=== PATIENT | female | born 1980 | race African-American/Black ===

== ENCOUNTER 2016-09-07 20:32 | Emergency (ER) | payer MEDICAID, OTHER ==
[2016-09-07] MEDS ORDERED: Ketorolac 60 MG/2 ML SDV IM ONE (20:51)
--- NOTE | 2016-09-07 21:22 | EDM.PDOC ---
ED HPI GENERAL MEDICAL PROBLEM - General Chief Complaint: Neck Problem Stated Complaint: STIFF NECK Time Seen by Provider: 09/07/16 20:50 Source of Information: Reports: Patient History Limitations: Reports: No limitations - History of Present Illness INITIAL COMMENTS - FREE TEXT/NARRATIVE: History of present illness: [35-year-old male presenting with acute onset of neck pain. Patient indicated her neck had been increasingly tight to 2 sleeping wrong, and increasing stresses in her life when yesterday she was twisting and rolling around to try to loosen the muscles and she heard a loud pop since that time she has had increasing pain in the neck radiating up into the head.] Review of systems: As per history of present illness and below otherwise all systems reviewed and negative. Past medical history: As per history of present illness and as reviewed below otherwise noncontributory. Surgical history: As per history of present illness and as reviewed below otherwise noncontributory. Social history: No reported history of drug or alcohol abuse. Family history: As per history of present illness and as reviewed below otherwise noncontributory. Physical exam: HEENT: Atraumatic, normocephalic, pupils reactive, negative for conjunctival pallor or scleral icterus, mucous membranes moist, throat clear, neck supple, nontender, trachea midline. Lungs: Clear to auscultation, breath sounds equal bilaterally, chest nontender. Heart: S1S2, regular, negative for clicks, rubs, or JVD. Abdomen: Soft, nondistended, nontender. Negative for masses or hepatosplenomegaly. Negative for costovertebral tenderness. Pelvis: Stable nontender. Genitourinary: Deferred. Rectal: Deferred. Extremities: Atraumatic, negative for cords or calf pain. Neurovascular unremarkable. Neuro: Awake, alert, oriented. Cranial nerves II through XII unremarkable. Cerebellum unremarkable. Motor and sensory unremarkable throughout. Exam nonfocal. Assessment gallbladder benign save for point tenderness in several of the C- spines including 4,5 and 6 Diagnostics: [X-ray of the cervical spine] Therapeutics: [Toradol 60 mg IM] Impression: [Neck pain] Plan: [Muscle relaxer, steroid burst] Definitive disposition and diagnosis as appropriate pending reevaluation and review of above. 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: , Other (see below) Other OB/BYN History: ovarian cysts Musculoskeletal History: Reports: None Neurological History: Reports: Migraines Psychiatric History: Reports: None Endocrine/Metabolic History: Reports: None Hematologic History: Reports: None Immunologic History: Reports: None Oncologic (Cancer) History: Reports: None Dermatologic History: Reports: Cellulitis - Infectious Disease History Infectious Disease History: Reports: None - Past Surgical History Head Surgeries/Procedures: Reports: None Female Surgical History: Reports: Tubal ligation Social & Family History - Family History Family Medical History: Noncontributory - Tobacco Use Smoking Status *Q: Never Smoker Years of Tobacco use: 1 Packs/Tins Daily: 0.1 Second Hand Smoke Exposure: No - Caffeine Use Caffeine Use: Reports: None Caffeine Use Comment: 1/day - Alcohol Use Days Per Week of Alcohol Use: 0 - Recreational Drug Use Recreational Drug Use: No ED ROS GENERAL - Review of Systems Review Of Systems: See Below (See history of present illness) ED EXAM, GENERAL - Physical Exam Exam: See Below (See history of present illness) Course - Vital Signs Last Recorded V/S: Last Vital Signs Temp 36.6 C 09/07/16 20:38 Pulse 82 09/07/16 20:38 Resp 16 09/07/16 20:38 BP 131/78 09/07/16 20:38 Pulse Ox 98 09/07/16 20:38 - Orders/Labs/Meds Orders: Active Orders 24 hr Category Date Time Status Cervical Spine 2V or 3V [CR] Stat Exams 09/07/16 20:51 Ordered Meds: Medications Discontinued Medications Generic Name Dose Route Start Last Admin Trade Name Freq PRN Reason Stop Dose Admin Ketorolac Tromethamine 60 mg 09/07/16 20:51 Toradol IM 09/07/16 20:52 ONETIME ONE Departure - Departure Time of Disposition: 21:29 Disposition: Home, Self-Care 01 Condition: good Clinical Impression: Neck pain, acute Instructions: Cervical Sprain, [id number] Referrals: PCP,None [Primary Care Provider] - Forms: ED Department Discharge Additional Instructions: The following information is given to patients seen in the emergency department who are being discharged to home. This information is to outline your options for follow-up care. We provide all patients seen in our emergency department with a follow-up referral. The need for follow-up, as well as the timing and circumstances, are variable depending upon the specifics of your emergency department visit. If you don't have a primary care physician on staff, we will provide you with a referral. We always advise you to contact your personal physician following an emergency department visit to inform them of the circumstance of the visit and for follow-up with them and/or the need for any referrals to a consulting specialist. The emergency department will also refer you to a specialist when appropriate. This referral assures that you have the opportunity for follow-up care with a specialist. All of these measure are taken in an effort to provide you with optimal care, which includes your follow-up. Under all circumstances we always encourage you to contact your private physician who remains a resource for coordinating your care. When calling for follow-up care, please make the office aware that this follow-up is from your recent emergency room visit. If for any reason you are refused follow-up, please contact the [facility] Emergency Department at and asked to speak to the emergency department charge nurse. Take medication as directed All with primary care provider one to 2 days Return to ED as needed as discussed - My Orders Last 24 Hours: My Active Orders 09/07/16 20:51 Cervical Spine 2V or 3V [CR] Stat - Assessment/Plan Last 24 Hours: My Active Orders 09/07/16 20:51 Cervical Spine 2V or 3V [CR] Stat
[2016-09-07] MEDS ORDERED: SUMAtriptan 6 MG/0.5 ML SDV SUBCUT ONE (21:41)
[2016-09-07 22:40] VITALS: BP 125/73
--- NOTE | 2016-09-09 18:03 | CR ---
EXAM DATE: 09/07/16 PATIENT'S AGE: 35 Patient: PHILLY COOMBS Facility: [place], [place] Site . Site : 1980 Study: XRay Spine Cervical [id number]/1/2017 9:14:09 PM Ordering Physician: Doctor May Final Report: INDICATION: Neck pain. Technique: Lateral, frontal, and odontoid views of the cervical spine. Impression: At the pedicles of C2, there is a lucency present. No displacement. The upper cervical spine may be somewhat rotated. Correlate with history of trauma. Would suggest either a repeat cone-down view of this region at C2 or a CT scan of the cervical spine for better visualization. In the setting of trauma fracture would not be excluded. The alignment shows no abnormal listhesis. The prevertebral soft tissues appear normal. Dictated by Eliezer Landis MD @ Sep 07 2016 9:18PM (Electronic Signature) Report Signed by Proxy and Original Signed Document filed in the Medical Record. MTDD
== END 2016-09-07 22:16 | disposition home or self-care (01) ==
LOC: MW.ED 20:32
DX: M54.2 Cervicalgia (principal); Z98.51 Tubal ligation status
CPT/HCPCS: 72040; 96372; 99283; J1885; J3030

== ENCOUNTER 2016-09-30 03:36 | Emergency (ER) | payer MEDICAID ==
[2016-09-30] MEDS ORDERED: Ketorolac 60 MG/2 ML SDV IM ONE (03:57)
[2016-09-30] MEDS ORDERED: SUMAtriptan 50 MG Tab PO ONE (03:58)
--- NOTE | 2016-09-30 04:01 | EDM.PDOC ---
ED HPI GENERAL MEDICAL PROBLEM - General Chief Complaint: Headache Stated Complaint: HEAD PAIN Time Seen by Provider: 09/30/16 03:58 Source of Information: Reports: Patient - History of Present Illness INITIAL COMMENTS - FREE TEXT/NARRATIVE: HISTORY AND PHYSICAL: History of present illness: [] Patient presents with complaint of headache involving left knee neuro unilateral distribution she rates 7/10, she does not appear to be any pain denies nausea or vomiting no scotomas no aura She states that she has used ibuprofen without benefit She has multiple visits for pain related symptoms Review of systems: As per history of present illness and below otherwise all systems reviewed and negative. Past medical history: As per history of present illness and as reviewed below otherwise noncontributory. Surgical history: As per history of present illness and as reviewed below otherwise noncontributory. Social history: No reported history of drug or alcohol abuse. Family history: As per history of present illness and as reviewed below otherwise noncontributory. Physical exam: HEENT: Atraumatic, normocephalic, pupils reactive, negative for conjunctival pallor or scleral icterus, mucous membranes moist, throat clear, neck supple, nontender, trachea midline. Lungs: Clear to auscultation, breath sounds equal bilaterally, chest nontender. Heart: S1S2, regular, negative for clicks, rubs, or JVD. Abdomen: Soft, nondistended, nontender. Negative for masses or hepatosplenomegaly. Negative for costovertebral tenderness. Pelvis: Stable nontender. Genitourinary: Deferred. Rectal: Deferred. Extremities: Atraumatic, negative for cords or calf pain. Neurovascular unremarkable. Neuro: Awake, alert, oriented. Cranial nerves II through XII unremarkable. Cerebellum unremarkable. Motor and sensory unremarkable throughout. Exam nonfocal. Diagnostics: [] Therapeutics: [] Toradol 60 IM Imitrex 50 mg by mouth Impression: [] A typical headache Definitive disposition and diagnosis as appropriate pending reevaluation and review of above. 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 (see below) Other OB/BYN History: ovarian cysts Musculoskeletal History: Reports: None Neurological History: Reports: Migraines Psychiatric History: Reports: None Endocrine/Metabolic History: Reports: None Hematologic History: Reports: None Immunologic History: Reports: None Oncologic (Cancer) History: Reports: None Dermatologic History: Reports: Cellulitis - Infectious Disease History Infectious Disease History: Reports: None - Past Surgical History Head Surgeries/Procedures: Reports: None Female Surgical History: Reports: Tubal ligation Social & Family History - Family History Family Medical History: Noncontributory - Tobacco Use Smoking Status *Q: Never Smoker Years of Tobacco use: 1 Packs/Tins Daily: 0.1 Second Hand Smoke Exposure: No - Caffeine Use Caffeine Use: Reports: None Caffeine Use Comment: 1/day - Alcohol Use Days Per Week of Alcohol Use: 0 - Recreational Drug Use Recreational Drug Use: No ED ROS GENERAL - Review of Systems Review Of Systems: ROS reveals no pertinent complaints other than HPI. ED EXAM, GENERAL - Physical Exam Exam: See Below Course - Vital Signs Last Recorded V/S: Last Vital Signs Temp 36.4 C 09/30/16 03:40 Pulse 88 09/30/16 03:40 Resp 16 09/30/16 03:40 BP 136/82 09/30/16 03:40 Pulse Ox 99 09/30/16 03:40 - Orders/Labs/Meds Orders: Active Orders 24 hr Category Date Time Status Ketorolac [Toradol] Med 09/30/16 03:57 Once 60 mg IM ONETIME ONE Medication Orders Ketorolac Tromethamine (Toradol) 60 mg IM ONETIME ONE Stop: 09/30/16 03:58 Meds: Medications Generic Name Dose Route Start Last Admin Trade Name Freq PRN Reason Stop Dose Admin Ketorolac Tromethamine 60 mg 09/30/16 03:57 Toradol IM 09/30/16 03:58 ONETIME ONE Departure - Departure Time of Disposition: 04:00 Disposition: Home, Self-Care 01 Condition: good Clinical Impression: Headache Forms: ED Department Discharge Additional Instructions: Continue ibuprofen as needed Caffeine may benefit Return if symptoms persist or worsen Followup with primary care in 2 weeks sooner as needed The following information is given to patients seen in the emergency department who are being discharged to home. This information is to outline your options for follow-up care. We provide all patients seen in our emergency department with a follow-up referral. The need for follow-up, as well as the timing and circumstances, are variable depending upon the specifics of your emergency department visit. If you don't have a primary care physician on staff, we will provide you with a referral. We always advise you to contact your personal physician following an emergency department visit to inform them of the circumstance of the visit and for follow-up with them and/or the need for any referrals to a consulting specialist. The emergency department will also refer you to a specialist when appropriate. This referral assures that you have the opportunity for follow-up care with a specialist. All of these measure are taken in an effort to provide you with optimal care, which includes your follow-up. Under all circumstances we always encourage you to contact your private physician who remains a resource for coordinating your care. When calling for follow-up care, please make the office aware that this follow-up is from your recent emergency room visit. If for any reason you are refused follow-up, please contact the [facility] emergency department at and asked to speak to the emergency department charge nurse. - My Orders Last 24 Hours: My Active Orders 09/30/16 03:57 Ketorolac [Toradol] 60 mg IM ONETIME ONE - Assessment/Plan Last 24 Hours: My Active Orders 09/30/16 03:57 Ketorolac [Toradol] 60 mg IM ONETIME ONE
[2016-09-30 04:45] VITALS: BP 132/84
== END 2016-09-30 04:43 | disposition home or self-care (01) ==
LOC: MW.ED 03:36
DX: R51 Headache (principal); Z98.51 Tubal ligation status
CPT/HCPCS: 96372; 99283; A9270; J1885

== ENCOUNTER 2016-12-24 22:59 | Emergency (ER) | payer MEDICAID ==
[2016-12-24] MEDS ORDERED: Acetaminophen/oxyCODONE 325-10 MG Tab PO ONE (23:52)
--- NOTE | 2016-12-24 23:59 | EDM.PDOC ---
ED HPI GENERAL MEDICAL PROBLEM - General Chief Complaint: Lower Extremity Injury/Pain Stated Complaint: PAIN RT LEG Time Seen by Provider: 12/24/16 23:30 Source of Information: Reports: Patient, Old Records, RN - History of Present Illness INITIAL COMMENTS - FREE TEXT/NARRATIVE: she had a severe "parminder horse" in her right thigh two days ago. Since then she has had constant soreness in the thigh such that it hurts alot to walk. no fever no vomiting no blunt force trauma no fever no dysuria right upper leg Pain Score (Numeric/FACES): 10 - Related Data Allergies Allergy/AdvReac Type Severity Reaction Status Date / Time No Known Allergies Allergy Verified 12/24/16 23:15 Home Meds: Home Meds Ondansetron HCl [Zofran] 4 mg PO Q8H PRN #10 tab 06/12/16 [Rx] Past Medical History - Past Health History Medical/Surgical History: Denies Medical/Surgical History HEENT History: Reports: None Cardiovascular History: Reports: None Respiratory History: Reports: None Gastrointestinal History: Reports: None Genitourinary History: Reports: None 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: Other OB/BYN History: ovarian cysts Musculoskeletal History: Reports: None Neurological History: Reports: Migraines Psychiatric History: Reports: None Endocrine/Metabolic History: Reports: None Hematologic History: Reports: None Immunologic History: Reports: None Oncologic (Cancer) History: Reports: None Dermatologic History: Reports: Cellulitis - Infectious Disease History Infectious Disease History: Reports: None - Past Surgical History Head Surgeries/Procedures: Reports: None Female Surgical History: Reports: Tubal Ligation Social & Family History - Family History Family Medical History: Noncontributory - Tobacco Use Smoking Status *Q: Never Smoker Years of Tobacco use: 1 Packs/Tins Daily: 0.1 Second Hand Smoke Exposure: No - Caffeine Use Caffeine Use: Reports: Coffee Caffeine Use Comment: 1/day - Alcohol Use Days Per Week of Alcohol Use: 0 - Recreational Drug Use Recreational Drug Use: No Review of Systems - Review of Systems Review Of Systems: See Below (as per HPI) ED EXAM, GENERAL - Physical Exam Exam: See Below Free Text/Narrative:: alert NAD marked tenderness over proximal anterior and medial right thigh musculature; Normal ROM of the hip joint but marked pain with motion. bears weight but with marked favoring of RLE with walking. Course - Vital Signs Last Recorded V/S: Last Vital Signs Temp 98.2 F 12/24/16 23:16 Pulse 90 12/24/16 23:16 Resp 16 12/24/16 23:16 BP 121/62 12/24/16 23:16 Pulse Ox 98 12/24/16 23:16 - Orders/Labs/Meds Orders: Active Orders 24 hr Category Date Time Status Hip Min 2V or 3V w Pelvis Rt [CR] Stat Exams 12/24/16 23:53 Taken Labs: Laboratory Tests 12/25/16 12/25/16 Range/Units 00:14 00:14 WBC 8.51 (4.0-11.0) K/uL RBC 4.33 (4.30-5.90) M/uL Hgb 12.0 (12.0-16.0) g/dL Hct 37.0 (36.0-46.0) % MCV 85.5 (80.0-98.0) fL MCH 27.7 (27.0-32.0) pg MCHC 32.4 (31.0-37.0) g/dL RDW Std Deviation 43.9 (28.0-62.0) fl RDW Coeff of Francisco 14 (11.0-15.0) % Plt Count 235 (150-400) K/uL MPV 10.50 (7.40-12.00) fL Neut % (Auto) 49.8 (48.0-80.0) % Lymph % (Auto) 40.2 H (16.0-40.0) % Canadian % (Auto) 7.6 (0.0-15.0) % Eos % (Auto) 2.2 (0.0-7.0) % Baso % (Auto) 0.2 (0.0-1.5) % Neut # (Auto) 4.2 (1.4-5.7) K/uL Lymph # (Auto) 3.4 H (0.6-2.4) K/uL Canadian # (Auto) 0.7 (0.0-0.8) K/uL Eos # (Auto) 0.2 (0.0-0.7) K/uL Baso # (Auto) 0.0 (0.0-0.1) K/uL Nucleated RBC % 0.0 /100WBC Nucleated RBCs # 0 K/uL Sodium 140 (136-146) mmol/L Potassium 4.4 (3.5-5.1) mmol/L Chloride 104 (98-110) mmol/L Carbon Dioxide 26 (21-31) mmol/L BUN 18 (6.0-23.0) mg/dL Creatinine 0.8 (0.6-1.5) mg/dL Est Cr Clr Drug Dosing 96.36 mL/min Estimated GFR (MDRD) > 60.0 ml/min Glucose 94 (60-110) mg/dL Calcium 9.3 (8.8-10.8) mg/dL Magnesium 1.6 (1.5-2.3) mEq/L Total Bilirubin 0.4 (0.1-1.5) mg/dL AST 17 (5-40) IU/L ALT 16 (8-54) IU/L Alkaline Phosphatase 57 (40-150) Creatine Kinase 136 (9-236) IU/L Total Protein 7.8 (6.0-8.0) g/dL Albumin 3.9 (3.5-5.0) g/dL Globulin 3.9 H (2.0-3.5) g/dL Albumin/Globulin Ratio 1.0 L (1.3-2.8) Meds: Medications Discontinued Medications Generic Name Dose Route Start Last Admin Trade Name Zeke PRN Reason Stop Dose Admin Oxycodone/Acetaminophen 1 tab 12/24/16 23:52 12/25/16 00:30 Percocet 325-10 Mg PO 12/24/16 23:53 1 tab ONETIME ONE Administration - Re-Assessments/Exams Free Text/Narrative Re-Assessment/Exam: 12/25/16 01:37 she feels much improved after percocet 10 Departure - Departure Time of Disposition: 01:41 Disposition: Home, Self-Care 01 Clinical Impression: Muscle pain - Discharge Information Forms: ED Department Discharge Additional Instructions: recheck as needed home from work until Friday percocet may be habit forming, sedating and constipating do not use tylenol with percocet recheck if not improving over the next few days. Yordy Prince MD - My Orders Last 24 Hours: My Active Orders 12/24/16 23:53 Hip Min 2V or 3V w Pelvis Rt [CR] Stat - Assessment/Plan Last 24 Hours: My Active Orders 12/24/16 23:53 Hip Min 2V or 3V w Pelvis Rt [CR] Stat
[2016-12-25 00:44] LABS: CHLORIDE,CL 104 mmol/L (98-110); SODIUM,NA 140 mmol/L (136-146)
[2016-12-25 02:56] VITALS: BP 118/77
--- NOTE | 2016-12-25 11:42 | CR ---
EXAM DATE: 12/24/16 PATIENT'S AGE: 36 Patient: PHILLY COOMBS Facility: [place], [place] Site . Site : 1980 Study: XRay Hip w/ pelvis [id number]/19/2017 12:39:50 AM Ordering Physician: Suresh Scales Final Report: HISTORY: Pain. FINDINGS: AP pelvis, AP and frog-leg views of the right hip demonstrates the pelvic ring and sacral ala are intact. The SI joints are maintained. There is a 6 mm calcific density seen adjacent to the right lateral acetabulum roof. Right hip joint space is preserved. No under abnormality, fracture or dislocation seen. IMPRESSION: 1. No fracture or dislocation is seen. 2. 6 mm calcific density seen adjacent lateral acetabular roof. This could represent an unfused ossification center. Dictated by Laura Giron MD @ 12/25/2016 12:54:16 AM Dictated by: Laura Giron MD @ 12/25/2016 00:54:23 (Electronic Signature) Report Signed by Proxy. [facility]a
== END 2016-12-25 01:55 | disposition home or self-care (01) ==
LOC: MW.ED 22:59
DX: M79.1 Myalgia (principal); Z98.51 Tubal ligation status
CPT/HCPCS: 36415; 73502; 80053; 82550; 83735; 85025; 99283; A9270

== ENCOUNTER 2017-04-04 20:57 | Emergency (ER) | payer MEDICAID ==
[2017-04-04 21:14] VITALS: BP 133/80
[2017-04-04] MEDS ORDERED: Ketorolac 30 MG/ML SDV IVPUSH ONE (21:42)
[2017-04-04] MEDS ORDERED: Ondansetron 4 MG/2 ML SDV IVPUSH ONE (21:42)
[2017-04-04] MEDS ORDERED: Sodium Chloride 0.9% 1,000 ML IV ONE (21:42)
[2017-04-04] MEDS ORDERED: LORazepam 2 MG/ML MDV IVPUSH ONE (21:42)
--- NOTE | 2017-04-04 21:58 | EDM.PDOC ---
ED HPI GENERAL MEDICAL PROBLEM - General Chief Complaint: Headache Stated Complaint: MIGRAINE Time Seen by Provider: 04/04/17 21:10 Source of Information: Reports: Patient History Limitations: Reports: No Limitations - History of Present Illness INITIAL COMMENTS - FREE TEXT/NARRATIVE: History of present illness: [36-year-old female comes in complaining of a migraine. Patient indicates that she has sporadic migraines and sometimes they cause her to have to come to the ED for intervention. Patient denies this being the worst migraine of her life just consistent with ones that are worse than she can manage at home.] Review of systems: As per history of present illness and below otherwise all systems reviewed and negative. Past medical history: As per history of present illness and as reviewed below otherwise noncontributory. Surgical history: As per history of present illness and as reviewed below otherwise noncontributory. Social history: No reported history of drug or alcohol abuse. Family history: As per history of present illness and as reviewed below otherwise noncontributory. Physical exam: HEENT: Atraumatic, normocephalic, pupils reactive, negative for conjunctival pallor or scleral icterus, mucous membranes moist, throat clear, neck supple, nontender, trachea midline. Lungs: Clear to auscultation, breath sounds equal bilaterally, chest nontender. Heart: S1S2, regular, negative for clicks, rubs, or JVD. Abdomen: Soft, nondistended, nontender. Negative for masses or hepatosplenomegaly. Negative for costovertebral tenderness. Pelvis: Stable nontender. Genitourinary: Deferred. Rectal: Deferred. Extremities: Atraumatic, negative for cords or calf pain. Neurovascular unremarkable. Neuro: Awake, alert, oriented. Cranial nerves II through XII unremarkable. Cerebellum unremarkable. Motor and sensory unremarkable throughout. Exam nonfocal. Assessment is benign save the subjective complaint as noted in history of present illness Diagnostics: [] Therapeutics: [Liter of normal saline, Ativan, Zofran, Toradol,] Impression: [#1 migraine] Plan: [Follow-up with PCP] Definitive disposition and diagnosis as appropriate pending reevaluation and review of above. 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: Other OB/BYN History: ovarian cysts Musculoskeletal History: Reports: None Neurological History: Reports: Migraines Psychiatric History: Reports: None Endocrine/Metabolic History: Reports: None Hematologic History: Reports: None Immunologic History: Reports: None Oncologic (Cancer) History: Reports: None Dermatologic History: Reports: Cellulitis - Infectious Disease History Infectious Disease History: Reports: None - Past Surgical History Head Surgeries/Procedures: Reports: None Female Surgical History: Reports: Tubal Ligation Social & Family History - Family History Family Medical History: Noncontributory - Tobacco Use Smoking Status *Q: Never Smoker Years of Tobacco use: 1 Packs/Tins Daily: 0.1 Second Hand Smoke Exposure: No - Caffeine Use Caffeine Use: Reports: None Caffeine Use Comment: 1/day - Alcohol Use Days Per Week of Alcohol Use: 0 - Recreational Drug Use Recreational Drug Use: No ED ROS GENERAL - Review of Systems Review Of Systems: See Below (See history of present illness) ED EXAM, GENERAL - Physical Exam Exam: See Below (See history of present illness) Course - Vital Signs Last Recorded V/S: Last Vital Signs Temp 36.4 C 04/04/17 21:09 Pulse 102 H 04/04/17 21:09 Resp 18 04/04/17 21:09 BP 133/80 04/04/17 21:09 Pulse Ox 98 04/04/17 21:09 Departure - Departure Time of Disposition: 22:11 Disposition: Home, Self-Care 01 Preliminary Cause of *Q: Sepsis & Multi System Organ Failure Condition: Good Clinical Impression: Migraine headache Qualifiers: Migraine type: unspecified Status migrainosus presence: without status migrainosus Intractability: not intractable Qualified Code(s): G43.909 - Migraine, unspecified, not intractable, without status migrainosus - Discharge Information Referrals: PCP,None [Primary Care Provider] - Additional Instructions: The following information is given to patients seen in the emergency department who are being discharged to home. This information is to outline your options for follow-up care. We provide all patients seen in our emergency department with a follow-up referral. The need for follow-up, as well as the timing and circumstances, are variable depending upon the specifics of your emergency department visit. If you don't have a primary care physician on staff, we will provide you with a referral. We always advise you to contact your personal physician following an emergency department visit to inform them of the circumstance of the visit and for follow-up with them and/or the need for any referrals to a consulting specialist. The emergency department will also refer you to a specialist when appropriate. This referral assures that you have the opportunity for follow-up care with a specialist. All of these measure are taken in an effort to provide you with optimal care, which includes your follow-up. Under all circumstances we always encourage you to contact your private physician who remains a resource for coordinating your care. When calling for follow-up care, please make the office aware that this follow-up is from your recent emergency room visit. If for any reason you are refused follow-up, please contact the [facility] Emergency Department at and asked to speak to the emergency department charge nurse. Take medication as directed Follow-up with PCP 1-2 days ED as needed as discussed
[2017-04-04] MEDS ORDERED: traMADol 50 MG Tab PO ONE (22:10)
[2017-04-04] MEDS ORDERED: Ketorolac 60 MG/2 ML SDV IM ONE (22:15)
[2017-04-04] MEDS ORDERED: LORazepam 1 MG Tab PO ONE (22:15)
[2017-04-04] MEDS ORDERED: Ondansetron 4 MG Tab.DIS ONE (22:19)
[2017-04-04] MEDS ORDERED: Ondansetron 4 MG Tab.DIS PO ONE (22:23)
== END 2017-04-04 23:00 | disposition home or self-care (01) ==
LOC: MW.ED 20:57
DX: G43.909 Migraine, unspecified, not intractable, without status migrainosus (principal)
CPT/HCPCS: 96372; 99283; A9270; J1885

== ENCOUNTER 2017-04-18 12:21 | Emergency (ER) | payer MEDICAID, OTHER ==
--- NOTE | 2017-04-18 12:56 | EDM.PDOC ---
ED HPI GENERAL MEDICAL PROBLEM - General Chief Complaint: General Stated Complaint: TOOTHACHE Time Seen by Provider: 04/18/17 12:45 Source of Information: Reports: Patient History Limitations: Reports: No Limitations - History of Present Illness INITIAL COMMENTS - FREE TEXT/NARRATIVE: HISTORY AND PHYSICAL: History of present illness: Patient is a 36-year-old female who presents to the emergency room with complaints of right lower dental pain. She states that this has been bothering her for approximately 1 week. Sensitive to cold or hot beverages. States that cold external temperatures are also bothering it. Has not seen a dentist in approximately one year. Denies any difficulty swallowing, difficulty breathing or ear pain. Denies any chest pain, shortness of breath, abdominal pain, nausea, vomiting or diarrhea. Denies any fever or chills. Denies any drainage coming from the painful area. Review of systems: As per history of present illness and below otherwise all systems reviewed and negative. Past medical history: As per history of present illness and as reviewed below otherwise noncontributory. Surgical history: As per history of present illness and as reviewed below otherwise noncontributory. Social history: No reported history of drug or alcohol abuse. Family history: As per history of present illness and as reviewed below otherwise noncontributory. Physical exam: Gen.: [id number] 36-year-old -[place] female. Alert and oriented. HEENT: Atraumatic, normocephalic, pupils reactive, negative for conjunctival pallor or scleral icterus, mucous membranes moist, dental decay noted to the right posterior molar with erythema to the gum line and tenderness with palpation. Her throat is clear, neck supple, nontender, trachea midline. Lungs: Clear to auscultation, breath sounds equal bilaterally, chest nontender. Heart: S1S2, regular, negative for clicks, rubs, or JVD. Abdomen: Soft, nondistended, nontender. Negative for masses or hepatosplenomegaly. Negative for costovertebral tenderness. Pelvis: Stable nontender. Genitourinary: Deferred. Rectal: Deferred. Extremities: Atraumatic, negative for cords or calf pain. Neurovascular unremarkable. Neuro: Awake, alert, oriented. Cranial nerves II through XII unremarkable. Cerebellum unremarkable. Motor and sensory unremarkable throughout. Exam nonfocal. Diagnostics: [] Therapeutics: Dental balls Impression: Dental decay, dental abscess Plan: 1. Please take the antibiotic as prescribed. Pen-V K 4 times daily 10 days Follow-up with a dentist in the next couple days for definitive treatment. 2. Take the pain medication as directed. A small amount of tramadol (#10) has been prescribed, do not take this while needing to be driving or functioning at work as it may cause drowsiness. He may take Tylenol and/or ibuprofen as needed for pain. 3. Return to the ED as needed and as discussed. Definitive disposition and diagnosis as appropriate pending reevaluation and review of above. Duration: Day(s): Location: Reports: Face - Related Data Allergies Allergy/AdvReac Type Severity Reaction Status Date / Time No Known Allergies Allergy Verified 04/18/17 12:56 Home Meds: Home Meds . 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: Other OB/BYN History: ovarian cysts Musculoskeletal History: Reports: None Neurological History: Reports: Migraines Psychiatric History: Reports: None Endocrine/Metabolic History: Reports: None Hematologic History: Reports: None Immunologic History: Reports: None Oncologic (Cancer) History: Reports: None Dermatologic History: Reports: Cellulitis - Infectious Disease History Infectious Disease History: Reports: None - Past Surgical History Head Surgeries/Procedures: Reports: None Female Surgical History: Reports: Tubal Ligation Social & Family History - Family History Family Medical History: Noncontributory - Tobacco Use Smoking Status *Q: Never Smoker Years of Tobacco use: 1 Packs/Tins Daily: 0.1 Second Hand Smoke Exposure: No - Caffeine Use Caffeine Use: Reports: None Caffeine Use Comment: 1/day - Alcohol Use Days Per Week of Alcohol Use: 0 - Recreational Drug Use Recreational Drug Use: No ED ROS GENERAL - Review of Systems Review Of Systems: ROS reveals no pertinent complaints other than HPI. ED EXAM, GENERAL - Physical Exam Exam: See Below (See dictation) Departure - Departure Time of Disposition: 12:56 Disposition: Home, Self-Care 01 Condition: Good Clinical Impression: Dental decay, Dental abscess - Discharge Information Referrals: PCP,None [Primary Care Provider] - Additional Instructions: My general discharge The following information is given to patients seen in the emergency department who are being discharged to home. This information is to outline your options for follow-up care. We provide all patients seen in our emergency department with a follow-up referral. The need for follow-up, as well as the timing and circumstances, are variable depending upon the specifics of your emergency department visit. If you don't have a primary care physician on staff, we will provide you with a referral. We always advise you to contact your personal physician following an emergency department visit to inform them of the circumstance of the visit and for follow-up with them and/or the need for any referrals to a consulting specialist. The emergency department will also refer you to a specialist when appropriate. This referral assures that you have the opportunity for follow-up care with a specialist. All of these measure are taken in an effort to provide you with optimal care, which includes your follow-up. Under all circumstances we always encourage you to contact your private physician who remains a resource for coordinating your care. When calling for follow-up care, please make the office aware that this follow-up is from your recent emergency room visit. If for any reason you are refused follow-up, please contact the [facility] Emergency Department at and asked to speak to the emergency department charge nurse. [facility] [address] [place] [id number] 1. Please take the antibiotic as prescribed. Pen-V K 4 times daily 10 days Follow-up with a dentist in the next couple days for definitive treatment. 2. Take the pain medication as directed. Tramadol has been prescribed, do not take this while needing to be driving or functioning at work as it may cause drowsiness. He may take Tylenol and/or ibuprofen as needed for pain. 3. Return to the ED as needed and as discussed.
[2017-04-18] MEDS ORDERED: Benzocaine 20% Topical Spray UD MUCMEM ONE (12:58)
[2017-04-18] MEDS ORDERED: Lidocaine 2% Viscous Solution 15 ML Cup PO ONE (12:58)
[2017-04-18 13:15] VITALS: BP 130/70
== END 2017-04-18 13:15 | disposition home or self-care (01) ==
LOC: MW.ED 12:21
DX: K04.7 Periapical abscess without sinus (principal); K02.9 Dental caries, unspecified
CPT/HCPCS: 99282; A9270

== ENCOUNTER 2017-06-17 19:04 | Emergency (ER) | payer MEDICAID ==
[2017-06-17 19:23] VITALS: BP 127/74
[2017-06-17] MEDS ORDERED: Benzocaine 20% Topical Spray UD MUCMEM ONE (19:39)
[2017-06-17] MEDS ORDERED: Lidocaine 2% Viscous Solution 15 ML Cup PO ONE (19:39)
[2017-06-17] MEDS ORDERED: Ketorolac 60 MG/2 ML SDV IM ONE (19:43)
--- NOTE | 2017-06-17 19:43 | EDM.PDOC ---
ED HPI GENERAL MEDICAL PROBLEM - General Chief Complaint: ENT Problem Stated Complaint: PAIN IN TOOTH Time Seen by Provider: 06/17/17 19:35 - History of Present Illness INITIAL COMMENTS - FREE TEXT/NARRATIVE: HISTORY AND PHYSICAL: History of present illness: The patient is a 36-year-old female who presents with persistent pain to her right lower wisdom tooth. Patient was seen by the dentist earlier today for extraction of that tooth and the patient says that during the course of trying to extract it infected and was breaking apart so the dentist opted to put her on penicillin and [place] and schedule a follow-up appointment. Patient presents because she does not feel that the pain meds are working. She's been applying heat to her face and that is making it worse. She otherwise has no systemic complaints. Review of systems: As per history of present illness and below otherwise all systems reviewed and negative. Past medical history: As per history of present illness and as reviewed below otherwise noncontributory. Surgical history: As per history of present illness and as reviewed below otherwise noncontributory. Social history: No reported history of drug or alcohol abuse. Family history: As per history of present illness and as reviewed below otherwise noncontributory. Physical exam: Gen.: Well-developed well-nourished female who is nontoxic and vital signs are reviewed by me. There is no visible facial swelling on the right lower jaw area HEENT: Atraumatic, normocephalic, pupils reactive, negative for conjunctival pallor or scleral icterus, mucous membranes moist, throat clear, neck supple, nontender, trachea midline. At the right lower wisdom tooth area there is toothy abnormality as well as gum swelling and discrete tenderness in the region but no fluctuance Lungs: Clear to auscultation, breath sounds equal bilaterally, chest nontender. Heart: S1S2, regular rhythm slightly tachycardic rate of my evaluation Abdomen: Soft, nondistended, nontender. NABS. Pelvis: Deferred Genitourinary: Deferred. Rectal: Deferred. Extremities: Atraumatic, negative for cords or calf pain. Neurovascular unremarkable. Neuro: Awake, alert, oriented. Cranial nerves II through XII unremarkable. Cerebellum unremarkable. Motor and sensory unremarkable throughout. Exam nonfocal. Diagnostics: [] Therapeutics: Dental balls Toradol Advised the patient to take the antibiotics and the painful she was prescribed as well as [id number] ibuprofen. We will give her dental balls here and she has a scheduled follow-up with her dentist. Impression: Dental pain Definitive disposition and diagnosis as appropriate pending reevaluation and review of above. dental area Pain Score (Numeric/FACES): 10 - Related Data Allergies Allergy/AdvReac Type Severity Reaction Status Date / Time No Known Allergies Allergy Verified 06/17/17 19:19 Home Meds: Home Meds Hydrocodone/Acetaminophen [Hydrocodon-Acetaminoph 7.5-325] 1 tab PO Q6HR PRN 02/24 [History] Penicillin V Potassium 1 tab PO BID 06/17/17 [History] Past Medical History - Past Health History Medical/Surgical History: Denies Medical/Surgical History HEENT History: Reports: None Cardiovascular History: Reports: None Respiratory History: Reports: None Gastrointestinal History: Reports: None Genitourinary History: Reports: None 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/BYN History: ovarian cysts Musculoskeletal History: Reports: None Neurological History: Reports: Migraines Psychiatric History: Reports: None Endocrine/Metabolic History: Reports: None Hematologic History: Reports: None Immunologic History: Reports: None Oncologic (Cancer) History: Reports: None Dermatologic History: Reports: Cellulitis - Infectious Disease History Infectious Disease History: Reports: None - Past Surgical History Head Surgeries/Procedures: Reports: None Female Surgical History: Reports: Tubal Ligation Social & Family History - Family History Family Medical History: Noncontributory - Tobacco Use Smoking Status *Q: Never Smoker Years of Tobacco use: 1 Packs/Tins Daily: 0.1 Second Hand Smoke Exposure: No - Caffeine Use Caffeine Use: Reports: None Caffeine Use Comment: 1/day - Alcohol Use Days Per Week of Alcohol Use: 0 - Recreational Drug Use Recreational Drug Use: No ED ROS GENERAL - Review of Systems Review Of Systems: ROS reveals no pertinent complaints other than HPI. ED EXAM, GENERAL - Physical Exam Exam: See Below (See dictation) Course - Vital Signs Last Recorded V/S: Last Vital Signs Temp 36.4 C 06/17/17 19:19 Pulse 105 H 06/17/17 19:19 Resp 18 06/17/17 19:19 BP 127/74 06/17/17 19:19 Pulse Ox 98 06/17/17 19:19 - Orders/Labs/Meds Orders: Active Orders 24 hr Category Date Time Status Benzocaine [Hurricaine One 20%] Med 06/17/17 19:39 Once 2 each MUCMEM ONETIME ONE Lidocaine 2% [Xylocaine 2% Viscous] Med 06/17/17 19:39 Once 15 ml PO ONETIME ONE Departure - Departure Time of Disposition: 19:42 Disposition: Home, Self-Care 01 Condition: Good Clinical Impression: Pain, dental - Discharge Information Referrals: PCP,None [Primary Care Provider] - Additional Instructions: The following information is given to patients seen in the emergency department who are being discharged to home. This information is to outline your options for follow-up care. We provide all patients seen in our emergency department with a follow-up referral. The need for follow-up, as well as the timing and circumstances, are variable depending upon the specifics of your emergency department visit. If you don't have a primary care physician on staff, we will provide you with a referral. We always advise you to contact your personal physician following an emergency department visit to inform them of the circumstance of the visit and for follow-up with them and/or the need for any referrals to a consulting specialist. The emergency department will also refer you to a specialist when appropriate. This referral assures that you have the opportunity for followup care with a specialist. All of these measure are taken in an effort to provide you with optimal care, which includes your followup. Under all circumstances we always encourage you to contact your private physician who remains a resource for coordinating your care. When calling for followup care, please make the office aware that this follow-up is from your recent emergency room visit. If for any reason you are refused follow-up, please contact the [facility] emergency department at and ask to speak to the emergency department charge nurse. [facility] Primary care- Internal Medicine and Family [address] [id number] Apply ice to face for swelling and discomfort and use dental balls you have been given today as directed. Please take the antibiotics and pain pills were given by the dentist and keep your follow-up with him. ER as needed and as discussed - My Orders Last 24 Hours: My Active Orders 06/17/17 19:39 Benzocaine [Hurricaine One 20%] 2 each MUCMEM ONETIME ONE Lidocaine 2% [Xylocaine 2% Viscous] 15 ml PO ONETIME ONE - Assessment/Plan Last 24 Hours: My Active Orders 06/17/17 19:39 Benzocaine [Hurricaine One 20%] 2 each MUCMEM ONETIME ONE Lidocaine 2% [Xylocaine 2% Viscous] 15 ml PO ONETIME ONE
== END 2017-06-17 20:27 | disposition home or self-care (01) ==
LOC: MW.ED 19:04
DX: K08.89 Other specified disorders of teeth and supporting structures (principal)
CPT/HCPCS: 96372; 99282; A9270; J1885; 99283

== ENCOUNTER 2017-06-22 12:54 | Emergency (ER) | payer MEDICAID ==
[2017-06-22 13:19] VITALS: BP 147/86
--- NOTE | 2017-06-22 14:37 | EDM.PDOC ---
ED HPI GENERAL MEDICAL PROBLEM - General Chief Complaint: General Stated Complaint: COLD,COUGH Time Seen by Provider: 06/22/17 14:36 Source of Information: Reports: Patient - History of Present Illness INITIAL COMMENTS - FREE TEXT/NARRATIVE: HISTORY AND PHYSICAL: History of present illness: [Patient is generally healthy 36-year-old female with complaints of generalized weakness and fatigue persistent cough and congestion over the last 24-48 hours complains of myalgias influenza was negative however certainly has the appearance of influenza and they've seen many positive patients with similar symptoms today No nausea vomiting chills sweats no chest pain headache dizziness palpitation no bowel or urine symptoms ] Review of systems: As per history of present illness and below otherwise all systems reviewed and negative. Past medical history: As per history of present illness and as reviewed below otherwise noncontributory. Surgical history: As per history of present illness and as reviewed below otherwise noncontributory. Social history: No reported history of drug or alcohol abuse. Family history: As per history of present illness and as reviewed below otherwise noncontributory. Physical exam: HEENT: Atraumatic, normocephalic, pupils reactive, negative for conjunctival pallor or scleral icterus, mucous membranes moist, throat clear, neck supple, nontender, trachea midline. Lungs: Clear to auscultation, breath sounds equal bilaterally, chest nontender. Heart: S1S2, regular, negative for clicks, rubs, or JVD. Abdomen: Soft, nondistended, nontender. Negative for masses or hepatosplenomegaly. Negative for costovertebral tenderness. Pelvis: Stable nontender. Genitourinary: Deferred. Rectal: Deferred. Extremities: Atraumatic, negative for cords or calf pain. Neurovascular unremarkable. Neuro: Awake, alert, oriented. Cranial nerves II through XII unremarkable. Cerebellum unremarkable. Motor and sensory unremarkable throughout. Exam nonfocal. Diagnostics: [Chest 2 views Influenza HCG ] Therapeutics: [DuoNeb ] Patient signed herself out AMA prior to receiving prescriptions or receiving her chest x-ray as she did not want to wait however clinically she likely had influenza despite a negative test, however she did leave AGAINST MEDICAL ADVICE HFA Phenergan with codeine Impression: [Viral syndrome] Definitive disposition and diagnosis as appropriate pending reevaluation and review of above. body aches Pain Score (Numeric/FACES): 8 - Related Data Allergies Allergy/AdvReac Type Severity Reaction Status Date / Time No Known Allergies Allergy Verified 06/22/17 13:16 Home Meds: Home Meds Hydrocodone/Acetaminophen [Hydrocodon-Acetaminoph 7.5-325] 1 tab PO Q6HR PRN 02/24 [History] Penicillin V Potassium 1 tab PO BID 06/17/17 [History] Past Medical History - Past Health History Medical/Surgical History: Denies Medical/Surgical History HEENT History: Reports: None Cardiovascular History: Reports: None Respiratory History: Reports: None Gastrointestinal History: Reports: None Genitourinary History: Reports: None 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 OB/BYN History: ovarian cysts Musculoskeletal History: Reports: None Neurological History: Reports: Migraines Psychiatric History: Reports: None Endocrine/Metabolic History: Reports: None Hematologic History: Reports: None Immunologic History: Reports: None Oncologic (Cancer) History: Reports: None Dermatologic History: Reports: Cellulitis - Infectious Disease History Infectious Disease History: Reports: None - Past Surgical History Head Surgeries/Procedures: Reports: None HEENT Surgical History: Reports: None Cardiovascular Surgical History: Reports: None Respiratory Surgical History: Reports: None GI Surgical History: Reports: None Female Surgical History: Reports: Tubal Ligation Endocrine Surgical History: Reports: None Musculoskeletal Surgical History: Reports: None Oncologic Surgical History: Reports: None Dermatological Surgical History: Reports: None Social & Family History - Family History Family Medical History: Noncontributory - Tobacco Use Smoking Status *Q: Never Smoker Years of Tobacco use: 1 Packs/Tins Daily: 0.1 Second Hand Smoke Exposure: No - Caffeine Use Caffeine Use: Reports: Coffee Caffeine Use Comment: 1/day - Alcohol Use Days Per Week of Alcohol Use: 0 - Recreational Drug Use Recreational Drug Use: No ED ROS GENERAL - Review of Systems Review Of Systems: ROS reveals no pertinent complaints other than HPI. ED EXAM, GENERAL - Physical Exam Exam: See Below Course - Vital Signs Last Recorded V/S: Last Vital Signs Temp 97.1 F 06/22/17 13:16 Pulse 105 H 06/22/17 13:16 Resp 18 06/22/17 13:16 BP 147/86 H 06/22/17 13:16 Pulse Ox 98 06/22/17 13:16 - Orders/Labs/Meds Orders: Active Orders 24 hr Category Date Time Status RT Aerosol Therapy [RC] ASDIRECTED Care 06/22/17 14:45 Active Chest 2V [CR] Stat Exams 06/22/17 14:32 Ordered Labs: Laboratory Tests 06/22/17 Range/Units 14:13 Urine HCG, Qual NEGATIVE (NEGATIVE) Meds: Medications Discontinued Medications Generic Name Dose Route Start Last Admin Trade Name Zeke PRN Reason Stop Dose Admin Albuterol/Ipratropium 3 ml 06/22/17 14:45 06/22/17 15:02 Duoneb 3.0-0.5 Mg/3 Ml NEB 06/22/17 14:46 3 ml ONETIME ONE Administration Departure - Departure Time of Disposition: 15:10 Disposition: Against Medical Advice 07 Condition: Fair Clinical Impression: Viral syndrome - Discharge Information Referrals: PCP,None [Primary Care Provider] - Forms: ED Department Discharge - My Orders Last 24 Hours: My Active Orders 06/22/17 14:32 Chest 2V [CR] Stat 06/22/17 14:45 RT Aerosol Therapy [RC] ASDIRECTED - Assessment/Plan Last 24 Hours: My Active Orders 06/22/17 14:32 Chest 2V [CR] Stat 06/22/17 14:45 RT Aerosol Therapy [RC] ASDIRECTED
[2017-06-22] MEDS ORDERED: Albuterol/Ipratropium 3.0-0.5 MG/3 ML Neb Soln NEB ONE (14:45)
== END 2017-06-22 15:10 | disposition left against medical advice (07) ==
LOC: MW.ED 12:54
DX: B34.9 Viral infection, unspecified (principal)
CPT/HCPCS: 81025; 87804; 94640; 99282; 99283-25

== ENCOUNTER 2017-06-25 07:58 | Emergency (ER) | payer MEDICAID ==
[2017-06-25 08:11] VITALS: BP 101/83
--- NOTE | 2017-06-25 08:14 | EDM.PDOC ---
ED HPI GENERAL MEDICAL PROBLEM - General Chief Complaint: General Stated Complaint: TOOTH PAIN Time Seen by Provider: 06/25/17 08:14 Source of Information: Reports: Patient - History of Present Illness INITIAL COMMENTS - FREE TEXT/NARRATIVE: HISTORY AND PHYSICAL: History of present illness: [Patient presents with dental pain 7 out of 10, she had a tooth extraction yesterday her dentist had provided pain medication prior she only had one or 2 left he did not prescribe more medication yesterday she was having some continued discomfort no fever nausea vomiting chills sweats ] Review of systems: As per history of present illness and below otherwise all systems reviewed and negative. Past medical history: As per history of present illness and as reviewed below otherwise noncontributory. Surgical history: As per history of present illness and as reviewed below otherwise noncontributory. Social history: No reported history of drug or alcohol abuse. Family history: As per history of present illness and as reviewed below otherwise noncontributory. Physical exam: HEENT: Atraumatic, normocephalic, pupils reactive, negative for conjunctival pallor or scleral icterus, mucous membranes moist, throat clear, neck supple, nontender, trachea midline. Generally healthy dentition outside of tooth extraction retromolar/wisdom tooth Lungs: Clear to auscultation, breath sounds equal bilaterally, chest nontender. Heart: S1S2, regular, negative for clicks, rubs, or JVD. Abdomen: Soft, nondistended, nontender. Negative for masses or hepatosplenomegaly. Negative for costovertebral tenderness. Pelvis: Stable nontender. Genitourinary: Deferred. Rectal: Deferred. Extremities: Atraumatic, negative for cords or calf pain. Neurovascular unremarkable. Neuro: Awake, alert, oriented. Cranial nerves II through XII unremarkable. Cerebellum unremarkable. Motor and sensory unremarkable throughout. Exam nonfocal. Diagnostics: [Clinical ] Therapeutics: [Toradol 10 mg by mouth 3 times a day #15 no refill] Impression: [Dental pain postextraction] Definitive disposition and diagnosis as appropriate pending reevaluation and review of above. 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 OB/BYN History: ovarian cysts Musculoskeletal History: Reports: None Neurological History: Reports: Migraines Psychiatric History: Reports: None Endocrine/Metabolic History: Reports: None Hematologic History: Reports: None Immunologic History: Reports: None Oncologic (Cancer) History: Reports: None Dermatologic History: Reports: Cellulitis - Infectious Disease History Infectious Disease History: Reports: None - Past Surgical History Head Surgeries/Procedures: Reports: None HEENT Surgical History: Reports: None Cardiovascular Surgical History: Reports: None Respiratory Surgical History: Reports: None GI Surgical History: Reports: None Female Surgical History: Reports: Tubal Ligation Endocrine Surgical History: Reports: None Musculoskeletal Surgical History: Reports: None Oncologic Surgical History: Reports: None Dermatological Surgical History: Reports: None Social & Family History - Family History Family Medical History: Noncontributory - Tobacco Use Smoking Status *Q: Never Smoker Years of Tobacco use: 1 Packs/Tins Daily: 0.1 Second Hand Smoke Exposure: No - Caffeine Use Caffeine Use: Reports: Coffee Caffeine Use Comment: 1/day - Alcohol Use Days Per Week of Alcohol Use: 0 - Recreational Drug Use Recreational Drug Use: No ED ROS GENERAL - Review of Systems Review Of Systems: ROS reveals no pertinent complaints other than HPI. ED EXAM, GENERAL - Physical Exam Exam: See Below Departure - Departure Time of Disposition: 08:15 Disposition: Home, Self-Care 01 Condition: Good Clinical Impression: Pain, dental - Discharge Information Referrals: PCP,None [Primary Care Provider] - Additional Instructions: Follow-up with dentist as needed or as scheduled Orajel may benefit The following information is given to patients seen in the emergency department who are being discharged to home. This information is to outline your options for follow-up care. We provide all patients seen in our emergency department with a follow-up referral. The need for follow-up, as well as the timing and circumstances, are variable depending upon the specifics of your emergency department visit. If you don't have a primary care physician on staff, we will provide you with a referral. We always advise you to contact your personal physician following an emergency department visit to inform them of the circumstance of the visit and for follow-up with them and/or the need for any referrals to a consulting specialist. The emergency department will also refer you to a specialist when appropriate. This referral assures that you have the opportunity for follow-up care with a specialist. All of these measure are taken in an effort to provide you with optimal care, which includes your follow-up. Under all circumstances we always encourage you to contact your private physician who remains a resource for coordinating your care. When calling for follow-up care, please make the office aware that this follow-up is from your recent emergency room visit. If for any reason you are refused follow-up, please contact the [facility] emergency department at and asked to speak to the emergency department charge nurse.
== END 2017-06-25 08:24 | disposition home or self-care (01) ==
LOC: MW.ED 07:58
DX: K08.89 Other specified disorders of teeth and supporting structures (principal)
CPT/HCPCS: 99282

== ENCOUNTER 2017-07-29 17:45 | Emergency (ER) | payer MEDICAID ==
[2017-07-29] MEDS ORDERED: Ketorolac 30 MG/ML SDV IVPUSH ONE (18:25)
[2017-07-29] MEDS ORDERED: diphenhydrAMINE 50 MG/ML SDV IVPUSH ONE (18:25)
[2017-07-29] MEDS ORDERED: Ondansetron 4 MG/2 ML SDV IVPUSH ONE (18:25)
[2017-07-29] MEDS ORDERED: Sodium Chloride 0.9% 1,000 ML IV ONE (18:25)
[2017-07-29] MEDS ORDERED: Lidocaine 2% Viscous Solution 15 ML Cup PO ONE (18:26)
[2017-07-29] MEDS ORDERED: Benzocaine 20% Topical Spray UD MUCMEM ONE (18:26)
--- NOTE | 2017-07-29 19:07 | EDM.PDOC ---
ED HPI GENERAL MEDICAL PROBLEM - General Chief Complaint: Headache Stated Complaint: HEADACH Time Seen by Provider: 07/29/17 18:15 Source of Information: Reports: Patient History Limitations: Reports: No Limitations - History of Present Illness INITIAL COMMENTS - FREE TEXT/NARRATIVE: Presents to the ER reporting headache. The patient states that is her usual migraine pattern which is a right frontal headache accompanied by severe photophobia. No nausea, visual symptoms or focal weakness. She states she thinks it may have been triggered by a dental problem that she has in the right third molar. She had the tooth extracted but the dentist could not get all of that she has a piece left in there. She is on antibiotics for that but there is local tenderness. left temportal headache Pain Score (Numeric/FACES): 10 - Related Data Allergies Allergy/AdvReac Type Severity Reaction Status Date / Time No Known Allergies Allergy Verified 07/29/17 18:05 Home Meds: Home Meds . 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 OB/BYN History: ovarian cysts Musculoskeletal History: Reports: None Neurological History: Reports: Migraines Psychiatric History: Reports: None Endocrine/Metabolic History: Reports: None Hematologic History: Reports: None Immunologic History: Reports: None Oncologic (Cancer) History: Reports: None Dermatologic History: Reports: Cellulitis - Infectious Disease History Infectious Disease History: Reports: None - Past Surgical History Head Surgeries/Procedures: Reports: None HEENT Surgical History: Reports: Other (See Below) Other HEENT Surgeries/Procedures: dental surgery Cardiovascular Surgical History: Reports: None Respiratory Surgical History: Reports: None GI Surgical History: Reports: None Female Surgical History: Reports: Tubal Ligation Endocrine Surgical History: Reports: None Musculoskeletal Surgical History: Reports: None Oncologic Surgical History: Reports: None Dermatological Surgical History: Reports: None Social & Family History - Family History Family Medical History: Noncontributory - Tobacco Use Smoking Status *Q: Never Smoker Years of Tobacco use: 1 Packs/Tins Daily: 0.1 Second Hand Smoke Exposure: No - Caffeine Use Caffeine Use: Reports: None Caffeine Use Comment: 1/day - Alcohol Use Days Per Week of Alcohol Use: 0 - Recreational Drug Use Recreational Drug Use: No ED ROS GENERAL - Review of Systems Review Of Systems: ROS reveals no pertinent complaints other than HPI. - Physical Exam Exam: See Below Exam Limited By: No Limitations General Appearance: Alert, Mild Distress, Other (Due to photophobia) Ears: Normal External Exam Nose: Normal Inspection Throat/Mouth: Other (Right mandibular third molar small fragment in the tissue but there is no surrounding inflammation, no swelling or mass over jaw) Head Exam: Atraumatic, Normocephalic Neck: Normal Inspection, Non-Tender, Full Range of Motion. No: Lymphadenopathy (L), Lymphadenopathy (R) Respiratory/Chest: No Respiratory Distress, Lungs Clear, Normal Breath Sounds Cardiovascular: Regular Rate, Rhythm GI/Abdominal: Soft Neuro Exam (Abbreviated): Alert, Oriented, CN II-XII Intact, Normal Gait, No Motor/Sensory Deficits Back Exam: Normal Inspection Extremities: Normal Inspection, Normal Range of Motion Psychiatric: Normal Affect, Normal Mood Skin Exam: Warm, Dry, Intact, Normal Color, No Rash Course - Vital Signs Last Recorded V/S: Last Vital Signs Temp 36.2 C 07/29/17 18:06 Pulse 91 07/29/17 18:06 Resp 18 07/29/17 18:06 BP 133/70 07/29/17 18:06 Pulse Ox 97 07/29/17 18:06 - Orders/Labs/Meds Meds: Medications Discontinued Medications Generic Name Dose Route Start Last Admin Trade Name Zeke PRN Reason Stop Dose Admin Benzocaine 2 each 07/29/17 18:26 07/29/17 18:44 Hurricaine One 20% MUCMEM 07/29/17 18:27 2 each ONETIME ONE Administration Diphenhydramine HCl 50 mg 07/29/17 18:25 07/29/17 18:46 Benadryl IVPUSH 07/29/17 18:26 50 mg ONETIME ONE Administration Sodium Chloride 1,000 mls @ 999 mls/hr 07/29/17 18:25 07/29/17 18:46 Normal Saline IV 07/29/17 19:25 999 mls/hr STAT ONE Administration Ketorolac Tromethamine 30 mg 07/29/17 18:25 07/29/17 18:44 Toradol IVPUSH 07/29/17 18:26 30 mg ONETIME ONE Administration Lidocaine HCl 15 ml 07/29/17 18:26 07/29/17 18:44 Xylocaine 2% Viscous PO 07/29/17 18:27 15 ml ONETIME ONE Administration Ondansetron HCl 4 mg 07/29/17 18:25 07/29/17 18:44 Zofran IVPUSH 07/29/17 18:26 4 mg ONETIME ONE Administration - Re-Assessments/Exams Free Text/Narrative Re-Assessment/Exam: 07/29/17 19:49 Headache resolved to 0/10 with treatment provided. Departure - Departure Time of Disposition: 19:49 Disposition: Home, Self-Care 01 Condition: Good Clinical Impression: Migraine Qualifiers: Migraine type: unspecified Status migrainosus presence: without status migrainosus - Discharge Information Referrals: PCP,None [Primary Care Provider] - [facility] [Outside] [facility] [Outside] Forms: ED Department Discharge Additional Instructions: 1. Follow up with dentist and oral surgeon as previously scheduled.
[2017-07-29 20:04] VITALS: BP 138/56
== END 2017-07-29 20:01 | disposition home or self-care (01) ==
LOC: MW.ED 17:45
DX: G43.909 Migraine, unspecified, not intractable, without status migrainosus (principal); Z72.0 Tobacco use
CPT/HCPCS: 96361; 96374; 96375; 99283; A9270; J1200; J1885; J2405; J7040; 99284

== ENCOUNTER 2017-09-30 17:50 | Emergency (ER) | payer MEDICAID ==
[2017-09-30 18:36] VITALS: BP 160/96
--- NOTE | 2017-09-30 18:51 | EDM.PDOC ---
ED HPI GENERAL MEDICAL PROBLEM - General Chief Complaint: ENT Problem Stated Complaint: SORE THROAT Time Seen by Provider: 09/30/17 18:38 Source of Information: Reports: Patient History Limitations: Reports: No Limitations - History of Present Illness INITIAL COMMENTS - FREE TEXT/NARRATIVE: HISTORY AND PHYSICAL: History of present illness: Patient is a 36-year-old female who presents to the emergency room today with complaints of throat pain 24 hours. She states that she has had a low-grade fever and chills and is concerned she may have strep throat. Pain is increased with swallowing. She denies any chest pain, shortness of breath, cough or dyspnea. His any abdominal pain, nausea, vomiting, diarrhea or constipation. Review of systems: As per history of present illness and below otherwise all systems reviewed and negative. Past medical history: As per history of present illness and as reviewed below otherwise noncontributory. Surgical history: As per history of present illness and as reviewed below otherwise noncontributory. Social history: No reported history of drug or alcohol abuse. Family history: As per history of present illness and as reviewed below otherwise noncontributory. Physical exam: General: Well-developed and well-nourished 36-year-old -[place] female. Alert and oriented. Nontoxic appearing and in no acute distress. HEENT: Atraumatic, normocephalic, pupils equal and reactive bilaterally, negative for conjunctival pallor or scleral icterus, mucous membranes moist, erythema noted to the posterior oropharynx without any pillar shifting or fullness. Her neck is supple, nontender, no lymph adenopathy, trachea midline. No drooling or trismus noted. No meningeal signs Lungs: Clear to auscultation, breath sounds equal bilaterally, chest nontender. Heart: S1S2, regular rate and rhythm without overt murmur Abdomen: Soft, nondistended, nontender. Negative for masses or hepatosplenomegaly. Negative for costovertebral tenderness. Pelvis: Stable nontender. Genitourinary: Deferred. Rectal: Deferred. Skin: Intact, warm, dry. No lesions or rashes noted. Extremities: Atraumatic, negative for cords or calf pain. Neurovascular unremarkable. Neuro: Awake, alert, oriented. Cranial nerves II through XII unremarkable. Cerebellum unremarkable. Motor and sensory unremarkable throughout. Exam nonfocal. Notes: Will treat with Augmentin and Phenergan with Codiene. Signs and symptoms which would prompt her to come back to the emergency room were reviewed. Patient is agreeable to plan of care. She denies any further questions at this time. Diagnostics: None Therapeutics: None Impression: Pharyngitis Plan: 1. Please take your antibiotic as prescribed. Please get a new toothbrush once your antibiotic is completed. 2. Warm saltwater 3-4 times daily. 3. Tylenol and/or ibuprofen as needed for pain management. Phenergan with codiene for moderate/severe pain; will cause drowsiness - so do not take while driving or needing to be functioning outside of the house. 4. Follow-up with your primary care provider in the next 1-2 days. Return to the ED as needed and as discussed. Definitive disposition and diagnosis as appropriate pending reevaluation and review of above. Onset: Today Duration: Day(s): Location: Reports: Head, Neck Throat Pain Score (Numeric/FACES): 6 - Related Data Allergies Allergy/AdvReac Type Severity Reaction Status Date / Time No Known Allergies Allergy Verified 09/30/17 18:33 Home Meds: Home Meds . 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 OB/BYN History: ovarian cysts Musculoskeletal History: Reports: None Neurological History: Reports: Migraines Psychiatric History: Reports: None Endocrine/Metabolic History: Reports: None Hematologic History: Reports: None Immunologic History: Reports: None Oncologic (Cancer) History: Reports: None Dermatologic History: Reports: Cellulitis - Infectious Disease History Infectious Disease History: Reports: None - Past Surgical History Head Surgeries/Procedures: Reports: None HEENT Surgical History: Reports: Other (See Below) Other HEENT Surgeries/Procedures: dental surgery Cardiovascular Surgical History: Reports: None Respiratory Surgical History: Reports: None GI Surgical History: Reports: None Female Surgical History: Reports: Tubal Ligation Endocrine Surgical History: Reports: None Musculoskeletal Surgical History: Reports: None Oncologic Surgical History: Reports: None Dermatological Surgical History: Reports: None Social & Family History - Family History Family Medical History: Noncontributory - Tobacco Use Smoking Status *Q: Never Smoker Years of Tobacco use: 1 Packs/Tins Daily: 0.1 Second Hand Smoke Exposure: No - Caffeine Use Caffeine Use: Reports: Other Caffeine Use Comment: 1/day - Alcohol Use Days Per Week of Alcohol Use: 0 - Recreational Drug Use Recreational Drug Use: No ED ROS ENT - Review of Systems Review Of Systems: ROS reveals no pertinent complaints other than HPI. ED EXAM, ENT - Physical Exam Exam: See Below (See dictation) Course - Vital Signs Last Recorded V/S: Last Vital Signs Temp 99.0 F 09/30/17 18:34 Pulse 91 09/30/17 18:34 Resp 18 09/30/17 18:34 BP 160/96 H 09/30/17 18:34 Pulse Ox 100 09/30/17 18:34 Departure - Departure Time of Disposition: 18:51 Disposition: Home, Self-Care 01 Clinical Impression: Pharyngitis Qualifiers: Pharyngitis/tonsillitis etiology: unspecified etiology Qualified Code(s): J02.9 - Acute pharyngitis, unspecified - Discharge Information Instructions: Pharyngitis, [id number] Referrals: Yasmany Newton MD [Primary Care Provider] - Forms: ED Department Discharge Additional Instructions: The following information is given to patients seen in the emergency department who are being discharged to home. This information is to outline your options for follow-up care. We provide all patients seen in our emergency department with a follow-up referral. The need for follow-up, as well as the timing and circumstances, are variable depending upon the specifics of your emergency department visit. If you don't have a primary care physician on staff, we will provide you with a referral. We always advise you to contact your personal physician following an emergency department visit to inform them of the circumstance of the visit and for follow-up with them and/or the need for any referrals to a consulting specialist. The emergency department will also refer you to a specialist when appropriate. This referral assures that you have the opportunity for follow-up care with a specialist. All of these measure are taken in an effort to provide you with optimal care, which includes your follow-up. Under all circumstances we always encourage you to contact your private physician who remains a resource for coordinating your care. When calling for follow-up care, please make the office aware that this follow-up is from your recent emergency room visit. If for any reason you are refused follow-up, please contact the [facility] Emergency Department at and asked to speak to the emergency department charge nurse. [facility] [address] [place] [id number] 1. Please take your antibiotic as prescribed. Please get a new toothbrush once your antibiotic is completed. 2. Warm saltwater 3-4 times daily. 3. Tylenol and/or ibuprofen as needed for pain management. Phenergan with codiene for moderate/severe pain; will cause drowsiness - so do not take while driving or needing to be functioning outside of the house. 4. Follow-up with your primary care provider in the next 1-2 days. Return to the ED as needed and as discussed.
== END 2017-09-30 19:16 | disposition home or self-care (01) ==
LOC: MW.ED 17:50
DX: J02.9 Acute pharyngitis, unspecified (principal)
CPT/HCPCS: 99282

== ENCOUNTER 2018-10-21 10:26 | Emergency (ER) | payer MEDICAID ==
--- NOTE | 2018-10-21 10:33 | EDM.PDOC ---
ED HPI GENERAL MEDICAL PROBLEM - General Chief Complaint: Gastrointestinal Problem Stated Complaint: FLU LIKE SYMPTOMS Time Seen by Provider: 10/21/18 10:33 Source of Information: Reports: Patient History Limitations: Reports: No Limitations - History of Present Illness INITIAL COMMENTS - FREE TEXT/NARRATIVE: HISTORY AND PHYSICAL: History of present illness: Patient is a 38-year-old female who presents to the emergency room with complaints of flulike symptoms. She states last week she was given medication by her primary care provider for "a bad cold". She states that the medication was for only one day but is concerned that her symptoms have returned and she still has cough and now has nausea, diarrhea, body aches. She is unsure of what medications she was prescribed or what they were for. States she had 3 loose stools yesterday; none today. Patient denies any fever, chills, headache, change in vision, syncope or near syncope. Denies any chest pain, back pain, shortness of breath. Denies any abdominal pain, vomiting, constipation or dysuria. Has not noted any blood in urine or stool. Patient has been eating and drinking appropriately. Denies any chance of . Review of systems: As per history of present illness and below otherwise all systems reviewed and negative. Past medical history: As per history of present illness and as reviewed below otherwise noncontributory. Surgical history: As per history of present illness and as reviewed below otherwise noncontributory. Social history: See social history for further information Family history: As per history of present illness and as reviewed below otherwise noncontributory. Physical exam: General: Well-developed and well-nourished 38-year-old -[place] female. Alert and oriented. Nontoxic appearing and in no acute distress. HEENT: Atraumatic, normocephalic, pupils equal and reactive bilaterally, negative for conjunctival pallor or scleral icterus, mucous membranes moist, TMs normal bilaterally, throat clear, neck supple, nontender, trachea midline. No drooling or trismus noted. No meningeal signs. No hot potato voice noted. Lungs: Clear to auscultation, breath sounds equal bilaterally, chest nontender. Dry nonproductive cough noted. Heart: S1S2, regular rate and rhythm without overt murmur Abdomen: Soft, nondistended, obese, nontender. Negative for masses. Negative for costovertebral tenderness. Pelvis: Stable nontender. Genitourinary: Deferred. Rectal: Deferred. Skin: Intact, warm, dry. No lesions or rashes noted. Extremities: Atraumatic, moves all extremities per self without difficulty or deficits, negative for cords or calf pain. Neurovascular unremarkable. Neuro: Awake, alert, oriented. Cranial nerves II through XII unremarkable. Cerebellum unremarkable. Motor and sensory unremarkable throughout. Exam nonfocal. Notes: Lab work is unremarkable. Chest x-ray shows no acute findings. Symptoms appear viral in nature. We'll give her an albuterol inhaler for her cough and Zofran for the nausea management. We discussed the need for appropriate follow-up with her primary care. Supportive care measures were reviewed and discussed. Voices understanding and is agreeable to plan of care. Denies any further questions or concerns at this time. Diagnostics: CBC, CMP, influenza, 2 view chest Therapeutics: Zofran ODT Prescription: Zofran Albuterol Inhaler Impression: Viral Illness Bronchitis Plan: 1. Please use Tylenol and/or Ibuprofen as needed for pain and fever management. 2. Get plenty of Rest. Encourage fluids to prevent dehydration. 3. Please follow up with your primary care provider. Return to the ED as needed as discussed. Definitive disposition and diagnosis as appropriate pending reevaluation and review of above. Generalized Pain Score (Numeric/FACES): 10 - Related Data Allergies Allergy/AdvReac Type Severity Reaction Status Date / Time No Known Allergies Allergy Verified 06/04/18 12:48 Home Meds: Home Meds Albuterol Sulfate [Albuterol Sulfate Hfa] 2 puff IH Q4HR PRN #1 hfa.aer.ad 10/21 [Rx] Ondansetron [Zofran ODT] 4 mg PO Q6H PRN #8 tab.dis 10/21/18 [Rx] Past Medical History - Past Health History Medical/Surgical History: Denies Medical/Surgical History HEENT History: Reports: Other (See Below) Other HEENT History: dental abscess Cardiovascular History: Reports: None Respiratory History: Reports: None Gastrointestinal History: Reports: None Genitourinary History: Reports: None 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 Musculoskeletal History: Reports: None Neurological History: Reports: Migraines Psychiatric History: Reports: None Endocrine/Metabolic History: Reports: None Hematologic History: Reports: None Immunologic History: Reports: None Oncologic (Cancer) History: Reports: None Dermatologic History: Reports: Cellulitis - Infectious Disease History Infectious Disease History: Reports: None - Past Surgical History Head Surgeries/Procedures: Reports: None HEENT Surgical History: Reports: Other (See Below) Other HEENT Surgeries/Procedures: dental surgery Cardiovascular Surgical History: Reports: None Respiratory Surgical History: Reports: None GI Surgical History: Reports: None Female Surgical History: Reports: Tubal Ligation Endocrine Surgical History: Reports: None Musculoskeletal Surgical History: Reports: None Oncologic Surgical History: Reports: None Dermatological Surgical History: Reports: None Social & Family History - Family History Family Medical History: Noncontributory - Caffeine Use Caffeine Use: Reports: Coffee Caffeine Use Comment: 1/day ED ROS GENERAL - Review of Systems Review Of Systems: ROS reveals no pertinent complaints other than HPI. ED EXAM, GI/ABD - Physical Exam Exam: See Below (See dictation) Course - Vital Signs Last Recorded V/S: Last Vital Signs Temp 96.2 F 10/21/18 10:35 Pulse 97 10/21/18 10:35 Resp 16 10/21/18 10:35 BP 123/68 10/21/18 10:35 Pulse Ox 96 10/21/18 10:35 - Orders/Labs/Meds Labs: Laboratory Tests 10/21/18 10/21/18 Range/Units 10:56 10:56 WBC 6.88 (4.0-11.0) K/uL RBC 4.58 (4.30-5.90) M/uL Hgb 12.7 (12.0-16.0) g/dL Hct 39.7 (36.0-46.0) % MCV 86.7 (80.0-98.0) fL MCH 27.7 (27.0-32.0) pg MCHC 32.0 (31.0-37.0) g/dL RDW Std Deviation 46.6 (28.0-62.0) fl RDW Coeff of [place] 15 (11.0-15.0) % Plt Count 290 (150-400) K/uL MPV 10.30 (7.40-12.00) fL Neut % (Auto) 50.2 (48.0-80.0) % Lymph % (Auto) 40.7 H (16.0-40.0) % [place] % (Auto) 5.7 (0.0-15.0) % Eos % (Auto) 3.1 (0.0-7.0) % Baso % (Auto) 0.3 (0.0-1.5) % Neut # (Auto) 3.5 (1.4-5.7) K/uL Lymph # (Auto) 2.8 H (0.6-2.4) K/uL [place] # (Auto) 0.4 (0.0-0.8) K/uL Eos # (Auto) 0.2 (0.0-0.7) K/uL Baso # (Auto) 0.0 (0.0-0.1) K/uL Nucleated RBC % 0.0 /100WBC Nucleated RBCs # 0 K/uL Sodium 140 (136-145) mmol/L Potassium 4.8 (3.5-5.1) mmol/L Chloride 104 (98-107) mmol/L Carbon Dioxide 28.4 (21.0-32.0) mmol/L BUN 10 (7.0-18.0) mg/dL Creatinine 0.9 (0.6-1.0) mg/dL Est Cr Clr Drug Dosing 74.62 mL/min Estimated GFR (MDRD) > 60.0 ml/min Glucose 103 (74-106) mg/dL Calcium 8.9 (8.5-10.1) mg/dL Total Bilirubin 0.4 (0.2-1.0) mg/dL AST 10 L (15-37) IU/L ALT 18 (14-63) IU/L Alkaline Phosphatase 52 (46-116) U/L Total Protein 7.5 (6.4-8.2) g/dL Albumin 3.4 (3.4-5.0) g/dL Globulin 4.1 H (2.6-4.0) g/dL Albumin/Globulin Ratio 0.8 L (0.9-1.6) Meds: Medications Discontinued Medications Generic Name Dose Route Start Last Admin Trade Name Freq PRN Reason Stop Dose Admin Ondansetron HCl 4 mg 10/21/18 10:41 10/21/18 11:14 Zofran Odt PO 10/21/18 10:42 4 mg ONETIME ONE Administration Departure - Departure Time of Disposition: 11:46 Disposition: Home, Self-Care 01 Clinical Impression: Bronchitis, Viral illness - Discharge Information Prescriptions: Albuterol Sulfate [Albuterol Sulfate Hfa] 2 puff IH Q4HR PRN #1 hfa.aer.ad PRN Reason: Dyspnea Ondansetron [Zofran ODT] 4 mg PO Q6H PRN #8 tab.dis PRN Reason: Nausea Referrals: PCP,None [Primary Care Provider] - Forms: ED Department Discharge Additional Instructions: The following information is given to patients seen in the emergency department who are being discharged to home. This information is to outline your options for follow-up care. We provide all patients seen in our emergency department with a follow-up referral. The need for follow-up, as well as the timing and circumstances, are variable depending upon the specifics of your emergency department visit. If you don't have a primary care physician on staff, we will provide you with a referral. We always advise you to contact your personal physician following an emergency department visit to inform them of the circumstance of the visit and for follow-up with them and/or the need for any referrals to a consulting specialist. The emergency department will also refer you to a specialist when appropriate. This referral assures that you have the opportunity for follow-up care with a specialist. All of these measure are taken in an effort to provide you with optimal care, which includes your follow-up. Under all circumstances we always encourage you to contact your private physician who remains a resource for coordinating your care. When calling for follow-up care, please make the office aware that this follow-up is from your recent emergency room visit. If for any reason you are refused follow-up, please contact the [facility] Emergency Department at and asked to speak to the emergency department charge nurse. [facility] [address] [place] [id number] [id number] 1. Please use Tylenol and/or Ibuprofen as needed for pain and fever management. 2. Get plenty of Rest. Encourage fluids to prevent dehydration. Use the inhaler and Zofran as needed and as directed. 3. Please follow up with your primary care provider. Return to the ED as needed as discussed.
[2018-10-21 10:37] VITALS: BP 123/68
[2018-10-21] MEDS ORDERED: Ondansetron 4 MG Tab.DIS PO ONE (10:41)
[2018-10-21 11:34] LABS: CHLORIDE,CL 104 mmol/L (98-107); SODIUM,NA 140 mmol/L (136-145)
--- NOTE | 2018-10-21 11:44 | CR ---
EXAMINATION: Two-view chest (PA and Lateral views). HISTORY: Shortness of breath. FINDINGS: The trachea is midline. The cardiomediastinal silhouette is within normal limits. No pulmonary infiltrates, effusions or pneumothorax. Osseous structures appear unremarkable. IMPRESSION: No acute cardiopulmonary process.
== END 2018-10-21 11:55 | disposition home or self-care (01) ==
LOC: MW.ED 10:26
DX: J40 Bronchitis, not specified as acute or chronic (principal); B34.9 Viral infection, unspecified
CPT/HCPCS: 36415; 71046; 80053; 85025; 87804; 99284; A9270; 99283

== ENCOUNTER 2018-12-09 06:57 | Emergency (ER) | payer MEDICAID ==
[2018-12-09] MEDS ORDERED: Sodium Chloride 0.9% 2.5 ML Syringe FLUSH PRN (07:30)
[2018-12-09] MEDS ORDERED: Sodium Chloride 0.9% 10 ML Syringe FLUSH PRN (07:30)
[2018-12-09] MEDS ORDERED: Ketorolac 30 MG/ML SDV IVPUSH ONE (07:31)
[2018-12-09] MEDS ORDERED: Morphine 2 MG/ML Syringe IVPUSH ONE (07:31)
--- NOTE | 2018-12-09 07:36 | EDM.PDOC ---
ED HPI GENERAL MEDICAL PROBLEM - General Chief Complaint: Lower Extremity Injury/Pain Stated Complaint: PAIN IN RIGHT LEG Time Seen by Provider: 12/09/18 07:09 - History of Present Illness INITIAL COMMENTS - FREE TEXT/NARRATIVE: HISTORY AND PHYSICAL: History of present illness: The patient is a 38-year-old female who is well-known to this ED and this provider from multiple visits to the ED for a variety of different problems who presents with 3 days of right groin pain worse with movement. She works at [employer] and does a lot of lifting and moving but she doesn't recall any specific injury. She says the pain is localized to the crease of her upper right leg and there is worse pain with movement lifting the leg and rotation of the leg. She has no abdominal complaints such as nausea vomiting pain or diarrhea she's had no fevers or chills and she denies as she has had a bilateral tubal ligation. The patient also says she has had no upper respiratory symptoms no flank pain and no urinary complaints. She has no neurosensory changes or weakness in the leg and she says she has been taking ibuprofen PM at night for sleep and occasionally taking ibuprofen during the day and it is not helping. She has no noticed swelling of her leg and has not noticed any redness or significant changes in the area. She definitely says the pain is worse with movement. She has no midline back pain. Review of systems: As per history of present illness and below otherwise all systems reviewed and negative. Past medical history: As per history of present illness and as reviewed below otherwise noncontributory. Surgical history: As per history of present illness and as reviewed below otherwise noncontributory. Social history: No reported history of drug or alcohol abuse. Family history: As per history of present illness and as reviewed below otherwise noncontributory. Physical exam: General: Well-developed well-nourished overweight female who is nontoxic and vital signs are noted by me. It in watching her in the ED going from a sitting to a supine position she has discomfort with lifting her right leg and engaging her hip flexors to get the leg on the bed. HEENT: Atraumatic, normocephalic, pupils reactive, negative for conjunctival pallor or scleral icterus, mucous membranes moist, throat clear, neck supple, nontender, trachea midline. Lungs: Clear to auscultation, breath sounds equal bilaterally, chest nontender. Heart: S1S2, regular rate and rhythm no overt murmurs Abdomen: Soft, nondistended, nontender. Negative for masses or hepatosplenomegaly. Negative for costovertebral tenderness. Specifically in the right inguinal area there is no gross adenopathy or masses appreciated but exam is challenging due to the patient's body habitus. There is tenderness at the insertion site of the hip flexor area and this can reproduce the pain but the patient does tell me during the exam that she thought that she felt a lump there although I do not appreciated. Exam is challenging again due to her body habitus and her discomfort. Pelvis: Stable nontender. Genitourinary: Deferred. Rectal: Deferred. Extremities: Atraumatic, negative for cords or calf pain. Neurovascular unremarkable. There are no palpable bony deformities throughout the lower extremities and there is no soft tissue swelling or compartment swelling appreciated or leg size discrepancy right versus left appreciated. With passive range of motion of the right hip the patient does state that she has more pain with external and internal rotation and with engaging the flexors. Neuro: Awake, alert, oriented. Cranial nerves II through XII unremarkable. Cerebellum unremarkable. Motor and sensory unremarkable throughout. Exam nonfocal. Diagnostics: CBC CMP lactic acid, CT scan of the pelvis with contrast--attention right groin for femoral hernia and bony windows for any hip bony architecture changes Therapeutics: IV placement IV fluids Toradol morphine, Norflex IM I did curbside Dr. Bonner who was on-call for surgery and ask her about the potential for a femoral hernia as the patient does have exquisite tenderness in this region and due to her body habitus and cannot appreciate anything on exam but her pain seems to be out of proportion to just musculoskeletal pain. She has advised me that diagnosing a femoral hernia by examination is very challenging especially in a patient who is overweight/obese so she recommends CT scan of the pelvis which I have ordered as above. I will involve her formally as needed pending that result CT scan reveals no evidence of any femoral hernia and no osseous structure abnormalities. We will proceed to treat this as a muscle pain strain of the hip flexor area. Impression: Right groin pain/hip pain, musculoskeletal pain strain Definitive disposition and diagnosis as appropriate pending reevaluation and review of above. - Related Data Allergies Allergy/AdvReac Type Severity Reaction Status Date / Time No Known Allergies Allergy Verified 12/09/18 07:12 Home Meds: Home Meds . 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 Musculoskeletal History: Reports: None Neurological History: Reports: Migraines Psychiatric History: Reports: None Endocrine/Metabolic History: Reports: None Hematologic History: Reports: None Immunologic History: Reports: None Oncologic (Cancer) History: Reports: None Dermatologic History: Reports: Cellulitis - Infectious Disease History Infectious Disease History: Reports: None - Past Surgical History Head Surgeries/Procedures: Reports: None HEENT Surgical History: Reports: Other (See Below) Other HEENT Surgeries/Procedures: dental surgery Cardiovascular Surgical History: Reports: None Respiratory Surgical History: Reports: None GI Surgical History: Reports: None Female Surgical History: Reports: Tubal Ligation Endocrine Surgical History: Reports: None Musculoskeletal Surgical History: Reports: None Oncologic Surgical History: Reports: None Dermatological Surgical History: Reports: None Social & Family History - Family History Family Medical History: Noncontributory - Tobacco Use Smoking Status *Q: Never Smoker - Caffeine Use Caffeine Use: Reports: Coffee Caffeine Use Comment: 1/day - Recreational Drug Use Recreational Drug Use: No Review of Systems - Review of Systems Review Of Systems: ROS reveals no pertinent complaints other than HPI. ED EXAM, GENERAL - Physical Exam Exam: See Below (See dictation) Course - Vital Signs Last Recorded V/S: Last Vital Signs Temp 36.2 C 12/09/18 07:10 Pulse 101 H 12/09/18 07:10 Resp 18 12/09/18 07:10 BP 112/73 12/09/18 07:10 Pulse Ox 98 12/09/18 07:10 - Orders/Labs/Meds Orders: Active Orders 24 hr Category Date Time Status Orphenadrine [Norflex] Med 12/09/18 09:34 Once 60 mg IM ONETIME ONE Sodium Chloride 0.9% [Normal Saline] 500 ml Med 12/09/18 07:45 Active IV STAT Sodium Chloride 0.9% [Saline Flush] Med 12/09/18 07:30 Active 10 ml FLUSH ASDIRECTED PRN Sodium Chloride 0.9% [Saline Flush] Med 12/09/18 07:30 Active 2.5 ml FLUSH ASDIRECTED PRN Saline Lock Insert [OM.PC] Stat Oth 12/09/18 07:29 Ordered Medication Orders Sodium Chloride (Normal Saline) 500 mls @ 999 mls/hr IV STAT GABBY Last Admin: 12/09/18 07:46 Dose: 999 mls/hr Sodium Chloride (Saline Flush) 10 ml FLUSH ASDIRECTED PRN PRN Reason: Keep Vein Open Last Admin: 12/09/18 07:46 Dose: 10 ml Sodium Chloride (Saline Flush) 2.5 ml FLUSH ASDIRECTED PRN PRN Reason: Keep Vein Open Last Admin: 12/09/18 07:46 Dose: 2.5 ml Labs: Laboratory Tests 12/09/18 12/09/18 12/09/18 Range/Units 07:40 07:40 07:40 WBC 5.62 (4.0-11.0) K/uL RBC 4.54 (4.30-5.90) M/uL Hgb 12.6 (12.0-16.0) g/dL Hct 39.0 (36.0-46.0) % MCV 85.9 (80.0-98.0) fL MCH 27.8 (27.0-32.0) pg MCHC 32.3 (31.0-37.0) g/dL RDW Std Deviation 44.0 (28.0-62.0) fl RDW Coeff of Francisco 14 (11.0-15.0) % Plt Count 291 (150-400) K/uL MPV 10.40 (7.40-12.00) fL Neut % (Auto) 51.4 (48.0-80.0) % Lymph % (Auto) 39.5 (16.0-40.0) % [place] % (Auto) 6.9 (0.0-15.0) % Eos % (Auto) 2.0 (0.0-7.0) % Baso % (Auto) 0.2 (0.0-1.5) % Neut # (Auto) 2.9 (1.4-5.7) K/uL Lymph # (Auto) 2.2 (0.6-2.4) K/uL [place] # (Auto) 0.4 (0.0-0.8) K/uL Eos # (Auto) 0.1 (0.0-0.7) K/uL Baso # (Auto) 0.0 (0.0-0.1) K/uL Nucleated RBC % 0.0 /100WBC Nucleated RBCs # 0 K/uL Lactate 0.8 (0.20-2.00) mmol/L Sodium 139 (136-145) mmol/L Potassium 4.2 (3.5-5.1) mmol/L Chloride 104 (98-107) mmol/L Carbon Dioxide 26.5 (21.0-32.0) mmol/L BUN 13 (7.0-18.0) mg/dL Creatinine 0.8 (0.6-1.0) mg/dL Est Cr Clr Drug Dosing 94.54 mL/min Estimated GFR (MDRD) > 60.0 ml/min Glucose 88 (74-106) mg/dL Calcium 9.2 (8.5-10.1) mg/dL Total Bilirubin 0.7 (0.2-1.0) mg/dL AST 24 (15-37) IU/L ALT 23 (14-63) IU/L Alkaline Phosphatase 52 (46-116) U/L Total Protein 7.6 (6.4-8.2) g/dL Albumin 3.5 (3.4-5.0) g/dL Globulin 4.1 H (2.6-4.0) g/dL Albumin/Globulin Ratio 0.9 (0.9-1.6) Meds: Medications Generic Name Dose Route Start Last Admin Trade Name Freq PRN Reason Stop Dose Admin Sodium Chloride 500 mls @ 999 mls/hr 12/09/18 07:45 12/09/18 07:46 Normal Saline IV 999 mls/hr STAT GABBY Administration Sodium Chloride 10 ml 12/09/18 07:30 12/09/18 07:46 Saline Flush FLUSH 10 ml ASDIRECTED PRN Administration Keep Vein Open Sodium Chloride 2.5 ml 12/09/18 07:30 12/09/18 07:46 Saline Flush FLUSH 2.5 ml ASDIRECTED PRN Administration Keep Vein Open Discontinued Medications Generic Name Dose Route Start Last Admin Trade Name Zeke PRN Reason Stop Dose Admin Iopamidol 100 ml 12/09/18 09:27 12/09/18 09:28 Isovue Multipack-370 (76%) IVPUSH 12/09/18 09:28 100 ml ONETIME ONE Administration Ketorolac Tromethamine 30 mg 12/09/18 07:31 12/09/18 07:45 Toradol IVPUSH 12/09/18 07:32 30 mg ONETIME ONE Administration Morphine Sulfate 2 mg 12/09/18 07:31 12/09/18 07:46 Morphine IVPUSH 12/09/18 07:32 2 mg ONETIME ONE Administration Departure - Departure Time of Disposition: 09:34 Disposition: Home, Self-Care 01 Condition: Good Clinical Impression: Strain of muscle of hip Hip pain Qualifiers: Laterality: right Qualified Code(s): M25.551 - Pain in right hip - Discharge Information Referrals: Yasmany Newton MD [Primary Care Provider] - Forms: ED Department Discharge Additional Instructions: The following information is given to patients seen in the emergency department who are being discharged to home. This information is to outline your options for follow-up care. We provide all patients seen in our emergency department with a follow-up referral. The need for follow-up, as well as the timing and circumstances, are variable depending upon the specifics of your emergency department visit. If you don't have a primary care physician on staff, we will provide you with a referral. We always advise you to contact your personal physician following an emergency department visit to inform them of the circumstance of the visit and for follow-up with them and/or the need for any referrals to a consulting specialist. The emergency department will also refer you to a specialist when appropriate. This referral assures that you have the opportunity for followup care with a specialist. All of these measure are taken in an effort to provide you with optimal care, which includes your followup. Under all circumstances we always encourage you to contact your private physician who remains a resource for coordinating your care. When calling for followup care, please make the office aware that this follow-up is from your recent emergency room visit. If for any reason you are refused follow-up, please contact the [facility] emergency department at and ask to speak to the emergency department charge nurse. MATTY [facility] Primary care- Internal Medicine and Family [facility] [address] [place] [id number] Ice the area after any activities and try to do all activities more slowly. Please call and schedule a follow-up appointment in the clinic with one of our providers for reevaluation further care. Please use [id number] ibuprofen/ Motrin 800 mg every 8 hours for the next 2-3 days to help with inflammation and also at the muscle relaxer as prescribed but only take this when you're at home as it may make you drowsy or sleepy area this muscle group is a large muscle group and will take time to heal and may take up to 10-14 days for complete improvement and resolution. Return to ER as needed and as discussed - My Orders Last 24 Hours: My Active Orders 12/09/18 07:29 Saline Lock Insert [OM.PC] Stat 12/09/18 07:30 Sodium Chloride 0.9% [Saline Flush] 10 ml FLUSH ASDIRECTED PRN Sodium Chloride 0.9% [Saline Flush] 2.5 ml FLUSH ASDIRECTED PRN 12/09/18 07:45 Sodium Chloride 0.9% [Normal Saline] 500 ml IV STAT 12/09/18 09:34 Orphenadrine [Norflex] 60 mg IM ONETIME ONE - Assessment/Plan Last 24 Hours: My Active Orders 12/09/18 07:29 Saline Lock Insert [OM.PC] Stat 12/09/18 07:30 Sodium Chloride 0.9% [Saline Flush] 10 ml FLUSH ASDIRECTED PRN Sodium Chloride 0.9% [Saline Flush] 2.5 ml FLUSH ASDIRECTED PRN 12/09/18 07:45 Sodium Chloride 0.9% [Normal Saline] 500 ml IV STAT 12/09/18 09:34 Orphenadrine [Norflex] 60 mg IM ONETIME ONE
[2018-12-09] MEDS ORDERED: Sodium Chloride 0.9% 500 ML IV SCH (07:45)
[2018-12-09 08:12] LABS: CHLORIDE,CL 104 mmol/L (98-107); SODIUM,NA 139 mmol/L (136-145)
--- NOTE | 2018-12-09 09:23 | CT ---
EXAMINATION: CT pelvis with contrast HISTORY: Hernia COMPARISON: 11/23/2015 TECHNIQUE: Axial CT images obtained through the pelvis following the administration of 100 mL of Isovue-370 in the right arm. Coronal and sagittal reconstructions obtained. FINDINGS: The visualized large and small bowel are normal in caliber without evidence of obstruction. The appendix is normal. The urinary bladder appears normal. No pelvic lymphadenopathy or free pelvic fluid. No inguinal or femoral hernia identified. Visualized osseous structures appear normal. IMPRESSION: 1. Grossly unremarkable CT pelvis.
[2018-12-09] MEDS ORDERED: Iopamidol 755 MG/ML 500 ML Multipack Bottle IVPUSH ONE (09:27)
[2018-12-09 10:22] VITALS: BP 145/79
== END 2018-12-09 10:18 | disposition home or self-care (01) ==
LOC: MW.ED 06:57
DX: S76.011A Strain of muscle, fascia and tendon of right hip, initial encounter (principal); X50.0XXA Overexertion from strenuous movement or load, initial encounter; Y99.0 Civilian activity done for income or pay
CPT/HCPCS: 72193; 80053; 83605; 85025; 96361; 96372; 96374; 96375; 99284; J2270; J2360; J7040; Q9967; J1885

== ENCOUNTER 2019-02-27 17:17 | Emergency (ER) | payer MEDICAID ==
--- NOTE | 2019-02-27 17:29 | EDM.PDOC ---
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 Past medical history: As per history of present illness and as reviewed below otherwise noncontributory. Surgical history: As per history of present illness and as reviewed below otherwise noncontributory. Social history: No reported history of drug or alcohol abuse. Family history: As per history of present illness and as reviewed below otherwise noncontributory. Physical exam: HEENT: Atraumatic, normocephalic, pupils reactive, negative for conjunctival pallor or scleral icterus, mucous membranes moist, throat clear, neck supple, nontender, trachea midline. Lungs: Clear to auscultation, breath sounds equal bilaterally, chest nontender. Heart: S1S2, regular, negative for clicks, rubs, or JVD. Abdomen: Soft, nondistended, nontender. Negative for masses or hepatosplenomegaly. Negative for costovertebral tenderness. Pelvis: Stable nontender. Genitourinary: Deferred. Rectal: Deferred. Extremities: Atraumatic, negative for cords or calf pain. Neurovascular unremarkable. Neuro: Awake, alert, oriented. Cranial nerves II through XII unremarkable. Cerebellum unremarkable. Motor and sensory unremarkable throughout. Exam nonfocal. Diagnostics: [Lumbar spine No hCG has history of tubal ligation] Therapeutics: Pulse 60 IM [ tramadol Continue ibuprofen Heat ice whichever gains most benefit All up with primary care in 2 weeks Impression: [paraspinous muscle spasm right greater than left ] Definitive disposition and diagnosis as appropriate pending reevaluation and review of above. low back Pain Score (Numeric/FACES): 10 - Related Data Allergies Allergy/AdvReac Type Severity Reaction Status Date / Time No Known Allergies Allergy Verified 02/27/19 17:32 Home Meds: Home Meds . 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 Musculoskeletal History: Reports: None Neurological History: Reports: Migraines Psychiatric History: Reports: None Endocrine/Metabolic History: Reports: None Hematologic History: Reports: None Immunologic History: Reports: None Oncologic (Cancer) History: Reports: None Dermatologic History: Reports: Cellulitis - Infectious Disease History Infectious Disease History: Reports: None - Past Surgical History Head Surgeries/Procedures: Reports: None HEENT Surgical History: Reports: Other (See Below) Other HEENT Surgeries/Procedures: dental surgery Cardiovascular Surgical History: Reports: None Respiratory Surgical History: Reports: None GI Surgical History: Reports: None Female Surgical History: Reports: Tubal Ligation Endocrine Surgical History: Reports: None Musculoskeletal Surgical History: Reports: None Oncologic Surgical History: Reports: None Dermatological Surgical History: Reports: None Social & Family History - Family History Family Medical History: Noncontributory - Caffeine Use Caffeine Use: Reports: Coffee Caffeine Use Comment: 1/day ED ROS GENERAL - Review of Systems Review Of Systems: See Below ED EXAM, GENERAL - Physical Exam Exam: See Below Course - Vital Signs Last Recorded V/S: Last Vital Signs Temp 97 F 02/27/19 17:20 Pulse 92 02/27/19 17:20 Resp 18 02/27/19 17:20 BP 124/84 02/27/19 17:20 Pulse Ox 99 02/27/19 17:20 - Orders/Labs/Meds Orders: Active Orders 24 hr Category Date Time Status Ketorolac [Toradol] Med 02/27/19 17:47 Once 60 mg IM ONETIME ONE Departure - Departure Time of Disposition: 17:48 Disposition: Home, Self-Care 01 Condition: Good Clinical Impression: Spasm of lumbar paraspinous muscle - Discharge Information Referrals: PCP,Unknown [Primary Care Provider] - Forms: ED Department Discharge Additional Instructions: Continue ibuprofen 400 mg 3 times daily 7-10 days Heat or ice whichever gains most benefit Medication as prescribed 20 pound weight limit recommended follow up with primary care in 2 weeks [facility] - Primary [facility] [address] [place] [id number] The following information is given to patients seen in the emergency department who are being discharged to home. This information is to outline your options for follow-up care. We provide all patients seen in our emergency department with a follow-up referral. The need for follow-up, as well as the timing and circumstances, are variable depending upon the specifics of your emergency department visit. If you don't have a primary care physician on staff, we will provide you with a referral. We always advise you to contact your personal physician following an emergency department visit to inform them of the circumstance of the visit and for follow-up with them and/or the need for any referrals to a consulting specialist. The emergency department will also refer you to a specialist when appropriate. This referral assures that you have the opportunity for follow-up care with a specialist. All of these measure are taken in an effort to provide you with optimal care, which includes your follow-up. Under all circumstances we always encourage you to contact your private physician who remains a resource for coordinating your care. When calling for follow-up care, please make the office aware that this follow-up is from your recent emergency room visit. If for any reason you are refused follow-up, please contact the [facility] emergency department at and asked to speak to the emergency department charge nurse. - My Orders Last 24 Hours: My Active Orders 02/27/19 17:47 Ketorolac [Toradol] 60 mg IM ONETIME ONE - Assessment/Plan Last 24 Hours: My Active Orders 02/27/19 17:47 Ketorolac [Toradol] 60 mg IM ONETIME ONE
--- NOTE | 2019-02-27 17:46 | CR ---
INDICATION: Back pain from lifting fruit boxes INDICATION: Back pain. TECHNIQUE: Lumbar spine 3 view. COMPARISON: None FINDINGS: Bones: Alignment is normal. No fractures or significant bone lesions. Joints: Disc spaces and facets are unremarkable. Soft tissues: Unremarkable. IMPRESSION: Normal radiographs of the lumbar spine. Dictated by Roman Fine MD @ 02/27/2019 5:44:40 PM Dictated by: Roman Fine MD @ 02/27/2019 17:44:48 (Electronically Signed)
[2019-02-27] MEDS ORDERED: Ketorolac 60 MG/2 ML SDV IM ONE (17:47)
[2019-02-27 18:14] VITALS: BP 128/71; PULSE 78
== END 2019-02-27 18:15 | disposition home or self-care (01) ==
LOC: MW.ED 17:17
DX: M62.830 Muscle spasm of back (principal)
CPT/HCPCS: 72100; 96372; 99283; J1885

== ENCOUNTER 2019-06-21 11:12 | Emergency (ER) | payer MEDICAID ==
[2019-06-21] MEDS ORDERED: Ketorolac 60 MG/2 ML SDV IM ONE (11:29)
--- NOTE | 2019-06-21 11:35 | EDM.PDOC ---
ED HPI GENERAL MEDICAL PROBLEM - General Chief Complaint: Back Pain or Injury Stated Complaint: BACK PAIN Time Seen by Provider: 06/21/19 11:21 Source of Information: Reports: Patient History Limitations: Reports: No Limitations - History of Present Illness INITIAL COMMENTS - FREE TEXT/NARRATIVE: HISTORY AND PHYSICAL: History of present illness: Patient is a 38-year-old female who presents to the ED today with concern of low back pain over the past 2 to 3 months. Patient states 2 to 3 months ago at work a crate fell on her lower back. Patient states since then she has had pain of her lower back which is worse when she lays around and better when she is active. Patient states that yesterday she had sneezed and felt a pull in the area of pain in her low back that radiated up to her neck when it happened. Patient states since then her low back is been more stiff and painful to move. Patient denies any recent trauma or injury to her low back. Patient denies any loss or retention of bowel bladder function or saddle anesthesia. Patient states she has had a tubal ligation. Patient states she does have an appointment in 2 days with the primary care provider for her back pain. Patient denies fever, chills, chest pain, shortness of breath, or cough. Denies headache, neck stiff ness, change in vision, syncope, or near syncope. Denies nausea, vomiting, abdominal pain, diarrhea, constipation, or dysuria. Has not noted any blood in urine or stool. Patient has been eating and drinking appropriately. Review of systems: As per history of present illness and below otherwise all systems reviewed and negative. Past medical history: As per history of present illness and as reviewed below otherwise noncontributory. Surgical history: As per history of present illness and as reviewed below otherwise noncontributory. Social history: See social history for further information Family history: As per history of present illness and as reviewed below otherwise noncontributory. Physical exam: General: Patient is alert, oriented, and in no acute distress. Patient sitting comfortably on exam table. HEENT: Atraumatic, normocephalic, pupils equal and reactive bilaterally, negative for conjunctival pallor or scleral icterus, mucous membranes moist, TMs normal bilaterally, throat clear, neck supple, nontender, trachea midline. No drooling or trismus noted. No meningeal signs. No hot potato voice noted. Lungs: Clear to auscultation, breath sounds equal bilaterally, chest nontender. Heart: S1S2, regular rate and rhythm without overt murmur Abdomen: Soft, nondistended, nontender. Negative for masses or hepatosplenomegaly. Negative for costovertebral tenderness. Pelvis: Stable nontender. Genitourinary: Deferred. Rectal: Deferred. Skin: Intact, warm, dry. No lesions or rashes noted. Extremities: Atraumatic, negative for cords or calf pain. Neurovascular unremarkable. No obvious deformity of the complete spine. No step offs, crepitus , or pain to palpation of the spinous process of complete spine. Patient does have mild to moderate discomfort with palpation of the paraspinous muscles of the lumbar spine. Patient does have full range of motion of complete spine but does have pain with range of motion of the lumbar spine. Tip/toe gait intact, heel gait intact. SLR intact bilaterally. Patellar reflex intact bilaterally. Neuro: Awake, alert, oriented. Cranial nerves II through XII unremarkable. Cerebellum unremarkable. Motor and sensory unremarkable throughout. Exam nonfocal. Notes: Discussed importance for follow-up with primary care provider. Voices understanding and is agreeable to plan of care. Denies any further questions or concerns at this time. Diagnostics: Lumbar XR, UA Therapeutics: Toradol, Norflex Prescription: Diclofenac, Flexeril Impression: Low back pain Plan: 1. Rest, ice/heat the affected area. You can apply ice and or heat 15 minutes on , 15 minutes off. 2. Tylenol as directed for pain management or discomfort. Take medication as prescribed. 3. Follow up with the primary care provider as discussed. Return to the ED as needed and as discussed. Definitive disposition and diagnosis as appropriate pending reevaluation and review of above. lower back Pain Score (Numeric/FACES): 9 - Related Data Allergies Allergy/AdvReac Type Severity Reaction Status Date / Time No Known Allergies Allergy Verified 06/21/19 11:21 Home Meds: Home Meds Cyclobenzaprine [Flexeril] 10 mg PO TID PRN #9 tab 06/21/19 [Rx] Diclofenac Sodium [Voltaren] 75 mg PO BIDMEALS PRN #15 tab.cr 06/21/19 [Rx] Past Medical History - Past Health History Medical/Surgical History: Denies Medical/Surgical History HEENT History: Reports: Other (See Below) Other HEENT History: dental abscess Cardiovascular History: Reports: None Respiratory History: Reports: None Gastrointestinal History: Reports: None Genitourinary History: Reports: None 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 Musculoskeletal History: Reports: None Neurological History: Reports: Migraines Psychiatric History: Reports: None Endocrine/Metabolic History: Reports: None Hematologic History: Reports: None Immunologic History: Reports: None Oncologic (Cancer) History: Reports: None Dermatologic History: Reports: Cellulitis - Infectious Disease History Infectious Disease History: Reports: None - Past Surgical History Head Surgeries/Procedures: Reports: None HEENT Surgical History: Reports: Other (See Below) Other HEENT Surgeries/Procedures: dental surgery Cardiovascular Surgical History: Reports: None Respiratory Surgical History: Reports: None GI Surgical History: Reports: None Female Surgical History: Reports: Tubal Ligation Endocrine Surgical History: Reports: None Musculoskeletal Surgical History: Reports: None Oncologic Surgical History: Reports: None Dermatological Surgical History: Reports: None Social & Family History - Family History Family Medical History: Noncontributory - Tobacco Use Smoking Status *Q: Never Smoker - Caffeine Use Caffeine Use: Reports: Coffee Caffeine Use Comment: 1/day - Recreational Drug Use Recreational Drug Use: No ED ROS GENERAL - Review of Systems Review Of Systems: Comprehensive ROS is negative, except as noted in HPI. ED EXAM, GENERAL - Physical Exam Exam: See Below (see dictation) Course - Vital Signs Last Recorded V/S: Last Vital Signs Temp 97.2 F 06/21/19 11:19 Pulse 79 06/21/19 11:19 Resp 18 06/21/19 11:19 BP 155/95 H 06/21/19 11:19 Pulse Ox 100 06/21/19 11:19 - Orders/Labs/Meds Labs: Laboratory Tests 06/21/19 Range/Units 11:55 Urine Color YELLOW Urine Appearance CLEAR Urine pH 7.5 (5.0-8.0) Ur Specific [place] 1.020 (1.001-1.035) Urine Protein NEGATIVE (NEGATIVE) mg/dL Urine Glucose (UA) NEGATIVE (NEGATIVE) mg/dL Urine Ketones NEGATIVE (NEGATIVE) mg/dL Urine Occult Blood NEGATIVE (NEGATIVE) Urine Nitrite NEGATIVE (NEGATIVE) Urine Bilirubin NEGATIVE (NEGATIVE) Urine Urobilinogen 1.0 (<2.0) EU/dL Ur Leukocyte Esterase NEGATIVE (NEGATIVE) Meds: Medications Discontinued Medications Generic Name Dose Route Start Last Admin Trade Name Freq PRN Reason Stop Dose Admin Ketorolac Tromethamine 60 mg 06/21/19 11:29 06/21/19 11:52 Toradol IM 06/21/19 11:30 60 mg ONETIME ONE Administration Orphenadrine Citrate 60 mg 06/21/19 11:29 06/21/19 11:53 Norflex IM 06/21/19 11:30 60 mg ONETIME ONE Administration Departure - Departure Time of Disposition: 12:39 Disposition: Home, Self-Care 01 Clinical Impression: Low back pain Qualifiers: Chronicity: acute Back pain laterality: bilateral Sciatica presence: without sciatica Qualified Code(s): M54.5 - Low back pain - Discharge Information Prescriptions: Cyclobenzaprine [Flexeril] 10 mg PO TID PRN #9 tab PRN Reason: Spasms Diclofenac Sodium [Voltaren] 75 mg PO BIDMEALS PRN #15 tab.cr PRN Reason: Pain Referrals: Yasmany Newton MD [Primary Care Provider] - Forms: ED Department Discharge Additional Instructions: The following information is given to patients seen in the emergency department who are being discharged to home. This information is to outline your options for follow-up care. We provide all patients seen in our emergency department with a follow-up referral. The need for follow-up, as well as the timing and circumstances, are variable depending upon the specifics of your emergency department visit. If you don't have a primary care physician on staff, we will provide you with a referral. We always advise you to contact your personal physician following an emergency department visit to inform them of the circumstance of the visit and for follow-up with them and/or the need for any referrals to a consulting specialist. The emergency department will also refer you to a specialist when appropriate. This referral assures that you have the opportunity for follow-up care with a specialist. All of these measure are taken in an effort to provide you with optimal care, which includes your follow-up. Under all circumstances we always encourage you to contact your private physician who remains a resource for coordinating your care. When calling for follow-up care, please make the office aware that this follow-up is from your recent emergency room visit. If for any reason you are refused follow-up, please contact the [facility] Emergency Department at and asked to speak to the emergency department charge nurse. [facility] [address] [place] [address] [address] 1. Rest, ice/heat the affected area. You can apply ice and or heat 15 minutes on , 15 minutes off. 2. Tylenol as directed for pain management or discomfort. Take medication as prescribed. 3. Follow up with the primary care provider as discussed. Return to the ED as needed and as discussed. Sepsis Event Note - Evaluation Sepsis Screening Result: No Definite Risk - Focused Exam Vital Signs: Vital Signs Temp Pulse Resp BP Pulse Ox 06/21/19 11:19 97.2 F 79 18 155/95 H 100 Date Exam was Performed: 06/21/19 Time Exam was Performed: 12:39
--- NOTE | 2019-06-21 12:33 | CR ---
Lumbar spine: AP, lateral and cone down lateral view centered to the lumbosacral junction were obtained. Comparison: Prior lumbar spine study of 02/27/19. Slight scoliosis is noted. Vertebral body heights and disc spaces are maintained. Pedicles are intact. Visualized transverse and spinous processes are intact. Sacroiliac joints appear unremarkable. Joint spaces within both hips are preserved. Impression: 1. Slight scoliosis. 2. Three-view lumbar spine study is otherwise unremarkable. Diagnostic code #2 This report was dictated in [place] Standard Time
[2019-06-21 12:51] VITALS: BP 110/70; PULSE 76
== END 2019-06-21 12:47 | disposition home or self-care (01) ==
LOC: MW.ED 11:12
DX: M54.5 Low back pain (principal)
CPT/HCPCS: 72100; 81003; 96372; 99283; J1885; J2360

== ENCOUNTER 2019-08-20 20:14 | Emergency (ER) | payer MEDICAID, OTHER ==
[2019-08-20] MEDS ORDERED: Metoclopramide 10 MG/2 ML SDV IV ONE (20:51)
[2019-08-20] MEDS ORDERED: Sodium Chloride 0.9% 1,000 ML IV ONE (20:51)
[2019-08-20] MEDS ORDERED: diphenhydrAMINE 50 MG/ML SDV IVPUSH ONE (20:51)
[2019-08-20] MEDS ORDERED: Ondansetron 4 MG/2 ML SDV IVPUSH ONE (20:51)
[2019-08-20] MEDS ORDERED: Ketorolac 30 MG/ML SDV IVPUSH ONE (20:51)
--- NOTE | 2019-08-20 20:59 | EDM.PDOC ---
ED HPI GENERAL MEDICAL PROBLEM - General Chief Complaint: Headache Stated Complaint: WEAK,NAUSEA,HEADACHE Time Seen by Provider: 08/20/19 20:18 Source of Information: Reports: Patient History Limitations: Reports: No Limitations - History of Present Illness INITIAL COMMENTS - FREE TEXT/NARRATIVE: HISTORY AND PHYSICAL: History of present illness: Patient is a 38-year-old female who presents to the emergency room today with complaints of a migraine headache and generalized weakness. She states she has had a frontal migraine headache since yesterday. She has associated light sensitivity, noise sensitivity and nausea. She has tried Tylenol and BC tablets OTC with temporary relief. She states she does occasionally get headaches. Does not describe this as the worst headache of her life. Patient denies any fever, chills, headache, change in vision, syncope or near syncope. Denies any head injury or trauma. Denies any chest pain, back pain, shortness of breath or cough. Denies any abdominal pain, diarrhea, constipation or dysuria. Denies any chance of . Patient has been eating and drinking appropriately. Review of systems: As per history of present illness and below otherwise all systems reviewed and negative. Past medical history: As per history of present illness and as reviewed below otherwise noncontributory. Surgical history: As per history of present illness and as reviewed below otherwise noncontributory. Social history: See social history for further information Family history: As per history of present illness and as reviewed below otherwise noncontributory. Physical exam: General: Well-developed and well-nourished 38-year-old -[place] female. Alert and oriented. Nontoxic-appearing and in no acute distress. HEENT: Atraumatic, normocephalic, pupils equal and reactive bilaterally, negative for conjunctival pallor or scleral icterus, mucous membranes moist, TMs normal bilaterally, throat clear, neck supple, nontender, trachea midline. No drooling or trismus noted. No meningeal signs. No hot potato voice noted. Lungs: Clear to auscultation, breath sounds equal bilaterally, chest nontender. Heart: S1S2, regular rate and rhythm without overt murmur Abdomen: Soft, nondistended, nontender. Negative for masses or hepatosplenomegaly. Negative for costovertebral tenderness. Skin: Intact, warm, dry. No lesions or rashes noted. Extremities: Atraumatic, moves all extremities per self without difficulty or deficits, negative for cords or calf pain. Neurovascular unremarkable. Neuro: Awake, alert, oriented. Cranial nerves II through XII unremarkable. Cerebellum unremarkable. Motor and sensory unremarkable throughout. Exam nonfocal. Notes: Patient reports that she does typically get migraine headaches and does not want a CT done of her head. She does have a ride home. We will do IV fluids and medications. Do not feel there is any need for other diagnostics at this time. Patient has improved since IV fluids/medications. VSS. Supportive care measures were reviewed and discussed. Voices understanding and is agreeable to plan of care. Denies any further questions or concerns at this time. Diagnostics: None Therapeutics: IV fluids, Zofran, Tordal, Reglan, Benadryl Prescription: None Impression: Migraine Headache Plan: 1. Please take the remainder of the day to rest in a dark and quiet room. The medication you received today does cause drowsiness so do not drive for the rest of the evening. 2. Make sure you are drinking plenty of fluids. You can alternate Tylenol and ibuprofen as needed for headache management. 3. Follow-up with your primary care provider as we discussed. Return to the ED as needed and as discussed. Definitive disposition and diagnosis as appropriate pending reevaluation and review of above. headache Pain Score (Numeric/FACES): 10 - Related Data Allergies Allergy/AdvReac Type Severity Reaction Status Date / Time No Known Allergies Allergy Verified 06/21/19 11:21 Home Meds: Home Meds . 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 Musculoskeletal History: Reports: None Neurological History: Reports: Migraines Psychiatric History: Reports: None Endocrine/Metabolic History: Reports: None Hematologic History: Reports: None Immunologic History: Reports: None Oncologic (Cancer) History: Reports: None Dermatologic History: Reports: Cellulitis - Infectious Disease History Infectious Disease History: Reports: None - Past Surgical History Head Surgeries/Procedures: Reports: None HEENT Surgical History: Reports: Other (See Below) Other HEENT Surgeries/Procedures: dental surgery Cardiovascular Surgical History: Reports: None Respiratory Surgical History: Reports: None GI Surgical History: Reports: None Female Surgical History: Reports: Tubal Ligation Endocrine Surgical History: Reports: None Musculoskeletal Surgical History: Reports: None Oncologic Surgical History: Reports: None Dermatological Surgical History: Reports: None Social & Family History - Family History Family Medical History: Noncontributory - Tobacco Use Smoking Status *Q: Never Smoker - Caffeine Use Caffeine Use: Reports: Coffee Caffeine Use Comment: 1/day - Recreational Drug Use Recreational Drug Use: No ED ROS GENERAL - Review of Systems Review Of Systems: Comprehensive ROS is negative, except as noted in HPI. - Physical Exam Exam: See Below (See dictation) Course - Vital Signs Last Recorded V/S: Last Vital Signs Temp 97.4 F 08/20/19 20:36 Pulse 88 08/20/19 20:36 Resp 15 08/20/19 20:36 BP 113/55 L 08/20/19 20:36 Pulse Ox 99 08/20/19 20:36 - Orders/Labs/Meds Orders: Active Orders 24 hr Category Date Time Status Sodium Chloride 0.9% [Normal Saline] 1,000 ml Med 08/20/19 20:51 Active IV STAT Medication Orders Sodium Chloride (Normal Saline) 1,000 mls @ 999 mls/hr IV STAT ONE Stop: 08/20/19 21:51 Meds: Medications Generic Name Dose Route Start Last Admin Trade Name Freq PRN Reason Stop Dose Admin Sodium Chloride 1,000 mls @ 999 mls/hr 08/20/19 20:51 Normal Saline IV 08/20/19 21:51 STAT ONE Discontinued Medications Generic Name Dose Route Start Last Admin Trade Name Freq PRN Reason Stop Dose Admin Diphenhydramine HCl 50 mg 08/20/19 20:51 Benadryl IVPUSH 08/20/19 20:52 ONETIME ONE Ketorolac Tromethamine 30 mg 08/20/19 20:51 Toradol IVPUSH 08/20/19 20:52 ONETIME ONE Metoclopramide HCl 10 mg 08/20/19 20:51 Reglan IV 08/20/19 20:52 ONETIME ONE Ondansetron HCl 4 mg 08/20/19 20:51 Zofran IVPUSH 08/20/19 20:52 ONETIME ONE Departure - Departure Time of Disposition: 21:05 Disposition: Home, Self-Care 01 Clinical Impression: Migraine headache Qualifiers: Migraine type: unspecified Status migrainosus presence: without status migrainosus Intractability: not intractable Qualified Code(s): G43.909 - Migraine, unspecified, not intractable, without status migrainosus - Discharge Information Instructions: Migraine Headache, [id number] Referrals: Yasmany Newton MD [Primary Care Provider] - Forms: ED Department Discharge Additional Instructions: The following information is given to patients seen in the emergency department who are being discharged to home. This information is to outline your options for follow-up care. We provide all patients seen in our emergency department with a follow-up referral. The need for follow-up, as well as the timing and circumstances, are variable depending upon the specifics of your emergency department visit. If you don't have a primary care physician on staff, we will provide you with a referral. We always advise you to contact your personal physician following an emergency department visit to inform them of the circumstance of the visit and for follow-up with them and/or the need for any referrals to a consulting specialist. The emergency department will also refer you to a specialist when appropriate. This referral assures that you have the opportunity for follow-up care with a specialist. All of these measure are taken in an effort to provide you with optimal care, which includes your follow-up. Under all circumstances we always encourage you to contact your private physician who remains a resource for coordinating your care. When calling for follow-up care, please make the office aware that this follow-up is from your recent emergency room visit. If for any reason you are refused follow-up, please contact the [facility] Emergency Department at and asked to speak to the emergency department charge nurse. [facility] Primary Care [address] [place] [address] [id number] [address] [address] 1. Please take the remainder of the day to rest in a dark and quiet room. The medication you received today does cause drowsiness so do not drive for the rest of the evening. 2. Make sure you are drinking plenty of fluids. You can alternate Tylenol and ibuprofen as needed for headache management. 3. Follow-up with your primary care provider as we discussed. Return to the ED as needed and as discussed. Sepsis Event Note - Evaluation Sepsis Screening Result: No Definite Risk - Focused Exam Vital Signs: Vital Signs Temp Pulse Resp BP Pulse Ox 08/20/19 20:36 97.4 F 88 15 113/55 L 99 Date Exam was Performed: 08/20/19 Time Exam was Performed: 21:18 - My Orders Last 24 Hours: My Active Orders 08/20/19 20:51 Sodium Chloride 0.9% [Normal Saline] 1,000 ml IV STAT - Assessment/Plan Last 24 Hours: My Active Orders 08/20/19 20:51 Sodium Chloride 0.9% [Normal Saline] 1,000 ml IV STAT
[2019-08-21 03:25] VITALS: BP 118/63; PULSE 71
== END 2019-08-20 22:34 | disposition home or self-care (01) ==
LOC: MW.ED 20:14
DX: G43.909 Migraine, unspecified, not intractable, without status migrainosus (principal)
CPT/HCPCS: 96361; 96374; 96375; 99284; J1200; J1885; J2405; J2765; J7030

== ENCOUNTER 2019-11-19 16:23 | Emergency (ER) | payer MEDICAID ==
[2019-11-19] MEDS ORDERED: Ibuprofen 600 MG Tab PO ONE (16:59)
[2019-11-19] MEDS ORDERED: Acetaminophen/HYDROcodone 325-5 MG Tab PO ONE (16:59)
--- NOTE | 2019-11-19 17:03 | EDM.PDOC ---
ED HPI GENERAL MEDICAL PROBLEM - General Chief Complaint: Upper Extremity Injury/Pain Stated Complaint: LEFT/RIGHT HAND INJURY Time Seen by Provider: 11/19/19 16:55 - History of Present Illness INITIAL COMMENTS - FREE TEXT/NARRATIVE: History of present illness: 39-year-old female presenting with right upper extremity pain after a fall 2 days ago. Symptoms have continued since then and worsened. She has continued to have swelling in the right hand. She apparently was helping somebody move when she tripped and fell down the stairs onto her outstretched right arm. She does report that she also had some left shoulder pain but that is now improved. No other areas of pain or injury. Review of systems: As per history of present illness and below otherwise all systems reviewed and negative. Past medical history: As per history of present illness and as reviewed below otherwise noncontributory. Surgical history: As per history of present illness and as reviewed below otherwise noncontributory. Social history: No reported history of drug or alcohol abuse. Family history: As per history of present illness and as reviewed below otherwise noncontributory. Physical exam: HEENT: Atraumatic, normocephalic, mucous membranes moist, throat clear, Neck: supple, nontender, trachea midline. Lungs: No respiratory distress. Heart: RRR Abdomen: Soft, nondistended, nontender. Pelvis: Stable nontender. Extremities: Tender to palpation palpation right hand, right wrist, right proximal forearm, and right shoulder. There is mild swelling of the right hand. Pain with range of motion of the right hand, including time buyer attempt, pain with range of motion of the right wrist, and right shoulder. Minimal tenderness left shoulder, mostly soft tissue and she reports this is actually improving. Neurovascularly unremarkable. Neuro: Awake, alert, oriented. Neuro Exam nonfocal. Diagnostics: [] Therapeutics: [] MDM: Impression: [] Plan: [] Definitive disposition and diagnosis as appropriate pending reevaluation and review of above. Right Arm Pain Score (Numeric/FACES): 8 - Related Data Allergies Allergy/AdvReac Type Severity Reaction Status Date / Time No Known Allergies Allergy Verified 11/19/19 16:54 Home Meds: Home Meds . 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 Musculoskeletal History: Reports: None Neurological History: Reports: Migraines Psychiatric History: Reports: None Endocrine/Metabolic History: Reports: None Hematologic History: Reports: None Immunologic History: Reports: None Oncologic (Cancer) History: Reports: None Dermatologic History: Reports: Cellulitis - Infectious Disease History Infectious Disease History: Reports: None - Past Surgical History Head Surgeries/Procedures: Reports: None HEENT Surgical History: Reports: Other (See Below) Other HEENT Surgeries/Procedures: dental surgery Cardiovascular Surgical History: Reports: None Respiratory Surgical History: Reports: None GI Surgical History: Reports: None Female Surgical History: Reports: Tubal Ligation Endocrine Surgical History: Reports: None Musculoskeletal Surgical History: Reports: None Oncologic Surgical History: Reports: None Dermatological Surgical History: Reports: None Social & Family History - Family History Family Medical History: Noncontributory - Tobacco Use Smoking Status *Q: Unknown Ever Smoked - Caffeine Use Caffeine Use: Reports: None Caffeine Use Comment: 1/day - Recreational Drug Use Recreational Drug Use: No Review of Systems - Review of Systems Review Of Systems: See Below (See dictation) ED EXAM, GENERAL - Physical Exam Exam: See Below (See dictation) Course - Vital Signs Last Recorded V/S: Last Vital Signs Temp 98.3 F 11/19/19 16:54 Pulse 87 11/19/19 16:54 Resp 18 11/19/19 16:54 BP 134/72 11/19/19 16:54 Pulse Ox 98 11/19/19 16:54 - Orders/Labs/Meds Orders: Active Orders 24 hr Category Date Time Status DME for Discharge [COMM] Stat Oth 11/19/19 18:49 Ordered Meds: Medications Discontinued Medications Generic Name Dose Route Start Last Admin Trade Name Freq PRN Reason Stop Dose Admin Hydrocodone Bitart/Acetaminophen 1 tab 11/19/19 16:59 11/19/19 17:57 Solvang 325-5 Mg PO 11/19/19 17:00 1 tab ONETIME ONE Administration Ibuprofen 600 mg 11/19/19 16:59 11/19/19 17:57 Motrin PO 11/19/19 17:00 600 mg ONETIME ONE Administration - Re-Assessments/Exams Free Text/Narrative Re-Assessment/Exam: 11/19/19 18:53 Patient is feeling better. After pain medications, including Solvang and ibuprofen. Discussed x-ray findings with no acute fracture. Will plan Julien wrap and discussed need for elevation as well as continued icing to the area. I did review the patient's images directly myself, she does appear to have an ulnar that is slightly deviated from the midline and a lateral view, however when looked at a prior x-ray performed in 2016 this appears to be in exactly the same alignment. Departure - Departure Time of Disposition: 18:53 Disposition: Home, Self-Care 01 Condition: Good Clinical Impression: Wrist sprain, Right shoulder strain, Sprain of shoulder - Discharge Information Instructions: Elastic Bandage and RICE Therapy, How to Use Cold Therapy, Easy- to-Read, Wrist Splint, Adult, [id number] Referrals: PCP,None [Primary Care Provider] - Forms: ED Department Discharge Additional Instructions: The following information is given to patients seen in the emergency department who are being discharged to home. This information is to outline your options for follow-up care. We provide all patients seen in our emergency department with a follow-up referral. The need for follow-up, as well as the timing and circumstances, are variable depending upon the specifics of your emergency department visit. If you don't have a primary care physician on staff, we will provide you with a referral. We always advise you to contact your personal physician following an emergency department visit to inform them of the circumstance of the visit and for follow-up with them and/or the need for any referrals to a consulting specialist. The emergency department will also refer you to a specialist when appropriate. This referral assures that you have the opportunity for follow-up care with a specialist. All of these measure are taken in an effort to provide you with optimal care, which includes your follow-up. Under all circumstances we always encourage you to contact your private physician who remains a resource for coordinating your care. When calling for follow-up care, please make the office aware that this follow-up is from your recent emergency room visit. If for any reason you are refused follow-up, please contact the [facility] Emergency Department at and asked to speak to the emergency department charge nurse. [facility] [address] [place] [address], [address] [place] [address] Sepsis Event Note (ED) - Evaluation Sepsis Screening Result: No Definite Risk - Focused Exam Vital Signs: Vital Signs Temp Pulse Resp BP Pulse Ox 11/19/19 16:54 98.3 F 87 18 134/72 98 - My Orders Last 24 Hours: My Active Orders 11/19/19 18:49 DME for Discharge [COMM] Stat - Assessment/Plan Last 24 Hours: My Active Orders 11/19/19 18:49 DME for Discharge [COMM] Stat
--- NOTE | 2019-11-19 17:47 | CR ---
Right forearm: 2 views of the right forearm were obtained. Comparison: No previous forearm study. No fracture or other bony abnormality is appreciated. Impression: 1. No abnormality is appreciated on 2 view right forearm study. Diagnostic code #1 This report was dictated in MDT
--- NOTE | 2019-11-19 17:47 | CR ---
Right shoulder: 3 views of the right shoulder were obtained. Comparison: No previous shoulder study. Glenohumeral and acromioclavicular joints appear unremarkable. No fracture, dislocation or other bony abnormality is seen. Impression: 1. No abnormality is identified on 3 view right shoulder study. Diagnostic code #1 This report was dictated in MDT
--- NOTE | 2019-11-19 17:47 | CR ---
Right wrist: 3 views of the right wrist were obtained. Comparison: No previous wrist study. Joint spaces are preserved. No fracture, dislocation or other bony abnormality is seen. Impression: 1. No abnormality is appreciated on 3 view right wrist exam. Diagnostic code #1 This report was dictated in MDT
--- NOTE | 2019-11-19 17:47 | CR ---
Right hand: 3 views of the right hand were obtained. Comparison: No previous hand study. Soft tissue swelling is noted. Joint spaces are maintained. No fracture, dislocation or other bony abnormality is seen. Impression: 1. Soft tissue swelling. 2. No bony abnormality is identified on 3 view right hand exam. Diagnostic code #1 This report was dictated in MDT
[2019-11-20 01:43] VITALS: BP 135/84; PULSE 72
== END 2019-11-19 19:40 | disposition home or self-care (01) ==
LOC: MW.ED 16:23
DX: S46.911A Strain of unspecified muscle, fascia and tendon at shoulder and upper arm level, right arm, initial encounter (principal); S63.501A Unspecified sprain of right wrist, initial encounter; S43.401A Unspecified sprain of right shoulder joint, initial encounter; W10.8XXA Fall (on) (from) other stairs and steps, initial encounter
CPT/HCPCS: 73030; 73090; 73110; 73130; 99283; A9270

== ENCOUNTER 2019-12-07 12:21 | Emergency (ER) | payer SELFPAY ==
[2019-12-07] MEDS ORDERED: Lidocaine 1% 10 ML MDV INJECT ONE (12:53)
--- NOTE | 2019-12-07 13:37 | EDM.PDOC ---
ED HPI GENERAL MEDICAL PROBLEM - General Chief Complaint: Skin Complaint Stated Complaint: CYST Time Seen by Provider: 12/07/19 12:26 Source of Information: Reports: Patient History Limitations: Reports: No Limitations - History of Present Illness INITIAL COMMENTS - FREE TEXT/NARRATIVE: Presents reporting an abscess in the perineum. The patient states that she had 1 there previously which required incision and drainage. That was about 6 months ago. Now she states that she shaved the area about a week ago and soon noticed the tender, painful, hard swollen area had returned. She did take an Epson salt bath soak but that did not resolve the problem. No fever, vaginal itch or discharge, dysuria except when the urine flows over the scab. Right Vaginal Pain Score (Numeric/FACES): 10 - Related Data Allergies Allergy/AdvReac Type Severity Reaction Status Date / Time No Known Allergies Allergy Verified 12/07/19 12:31 Home Meds: Home Meds . 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 Musculoskeletal History: Reports: None Neurological History: Reports: Migraines Psychiatric History: Reports: None Endocrine/Metabolic History: Reports: None Hematologic History: Reports: None Immunologic History: Reports: None Oncologic (Cancer) History: Reports: None Dermatologic History: Reports: Cellulitis - Infectious Disease History Infectious Disease History: Reports: None - Past Surgical History Head Surgeries/Procedures: Reports: None HEENT Surgical History: Reports: Other (See Below) Other HEENT Surgeries/Procedures: dental surgery Cardiovascular Surgical History: Reports: None Respiratory Surgical History: Reports: None GI Surgical History: Reports: None Female Surgical History: Reports: Tubal Ligation Endocrine Surgical History: Reports: None Musculoskeletal Surgical History: Reports: None Oncologic Surgical History: Reports: None Dermatological Surgical History: Reports: None Social & Family History - Family History Family Medical History: Noncontributory - Tobacco Use Smoking Status *Q: Never Smoker Second Hand Smoke Exposure: No - Caffeine Use Caffeine Use: Reports: None Caffeine Use Comment: 1/day - Recreational Drug Use Recreational Drug Use: No ED ROS GENERAL - Review of Systems Review Of Systems: Comprehensive ROS is negative, except as noted in HPI. ED EXAM, SKIN/RASH Exam: See Below Exam Limited By: No Limitations General Appearance: Alert, No Apparent Distress Ears: Normal External Exam Nose: Normal Inspection Throat/Mouth: Normal Inspection Head: Atraumatic, Normocephalic Neck: Normal Inspection Respiratory/Chest: No Respiratory Distress, Lungs Clear, Normal Breath Sounds Cardiovascular: Regular Rate, Rhythm GI/Abdominal: Soft (Female) Exam: Other (Over the lower left outer perineum is a exquisitely tender firm mass with a fluctuant area under a minute scab. No redness or discharge) ED SKIN PROCEDURES - I&D Site: left lower perineum Skin Prep: Isopropyl Alcohol (Alcohol) Local Anesthesia: Lidocaine: 1% Plain Local Anesthetic Volume: 4cc Drainage: Purulent, Bloody Packed With: 1/4 in. Iodoform (plain), Other Sterile Dressinx4(s) Complications: No Course - Vital Signs Last Recorded V/S: Last Vital Signs Temp 37.0 C 12/07/19 12:32 Pulse 76 12/07/19 12:32 Resp 15 12/07/19 12:32 BP 156/77 H 12/07/19 12:32 Pulse Ox 98 12/07/19 12:32 - Orders/Labs/Meds Meds: Medications Discontinued Medications Generic Name Dose Route Start Last Admin Trade Name Zeke PRN Reason Stop Dose Admin Lidocaine HCl 10 ml 12/07/19 12:53 Xylocaine 1% INJECT 12/07/19 12:54 ONETIME ONE Lidocaine HCl 5 ml 12/07/19 13:12 Xylocaine-Mpf 1% INJECT 12/07/19 13:13 ONETIME ONE Departure - Departure Time of Disposition: 13:39 Disposition: Home, Self-Care 01 Condition: Good Clinical Impression: Abscess - Discharge Information Referrals: Yasmany Newton MD [Primary Care Provider] - Additional Instructions: The following information is given to patients seen in the emergency department who are being discharged to home. This information is to outline your options for follow-up care. We provide all patients seen in our emergency department with a follow-up referral. The need for follow-up, as well as the timing and circumstances, are variable depending upon the specifics of your emergency department visit. If you don't have a primary care physician on staff, we will provide you with a referral. We always advise you to contact your personal physician following an emergency department visit to inform them of the circumstance of the visit and for follow-up with them and/or the need for any referrals to a consulting specialist. The emergency department will also refer you to a specialist when appropriate. This referral assures that you have the opportunity for follow-up care with a specialist. All of these measure are taken in an effort to provide you with optimal care, which includes your follow-up. Under all circumstances we always encourage you to contact your private physician who remains a resource for coordinating your care. When calling for follow-up care, please make the office aware that this follow-up is from your recent emergency room visit. If for any reason you are refused follow-up, please contact the [facility] Emergency Department at and asked to speak to the emergency department charge nurse. 1. Packing will likely fall out on its own if not remove in 48 hours. 2. Using personal shower or moist pack, warm pack three times a day. 3. Wound will heal from the inside out. 4. Avoid intercourse until healed. 5. Do not shave the perineum 6. Report advancing redness, worsening or non-improving symptoms promptly. Sepsis Event Note (ED) - Evaluation Sepsis Screening Result: No Definite Risk - Focused Exam Vital Signs: Vital Signs Temp Pulse Resp BP Pulse Ox 12/07/19 12:32 37.0 C 76 15 156/77 H 98
[2019-12-07 13:50] VITALS: BP 136/76; PULSE 72
== END 2019-12-07 13:50 | disposition home or self-care (01) ==
LOC: MW.ED 12:21
DX: L02.215 Cutaneous abscess of perineum (principal)
CPT/HCPCS: 56405; 87070; 99283; J2001

== ENCOUNTER 2020-09-16 05:37 | Emergency (ER) | payer MEDICAID ==
[2020-09-16 07:00] LABS: CORONAVIRUS COVID-19 NAA NEGATIVE (NEGATIVE); INFLUENZA A NAA NEGATIVE (NEGATIVE); INFLUENZA B NAA NEGATIVE (NEGATIVE)
--- NOTE | 2020-09-16 07:05 | CR ---
Indication: Cough Technique: Chest 2 view Comparison: None Findings/Impression: Cardiovascular and mediastinum: Heart size and vasculature are normal in caliber and appearance. Lungs and pleural space: Lungs are clear. No sign of infiltrate or mass. No sign of pleural effusion. No pneumothorax. Bones and soft tissues: No acute findings. Dictated by Monty Milner MD @ Sep 16 2020 7:04AM Signed by Dr. Monty Milner @ Sep 16 2020 7:05AM
[2020-09-16] MEDS ORDERED: Ketorolac 15 MG/ML SDV IVPUSH STA (07:19)
[2020-09-16] MEDS ORDERED: Acetaminophen 500 MG Tab PO ONE (07:19)
[2020-09-16] MEDS ORDERED: Sodium Chloride 0.9% 1,000 ML IV ONE (07:19)
[2020-09-16 07:22] LABS: BLOOD UREA NITROGEN,BUN 10 mg/dL (7.0-18.0); CHLORIDE,CL 102 mmol/L (98-107); GLUCOSE RANDOM 103 mg/dL (74-106); POTASSIUM,K 4.1 mmol/L (3.5-5.1); SODIUM,NA 130 mmol/L (136-145)
--- NOTE | 2020-09-16 07:24 | EDM.PDOC ---
ED HPI GENERAL MEDICAL PROBLEM - General Chief Complaint: General Stated Complaint: SICK Time Seen by Provider: 09/16/20 07:00 Source of Information: Reports: Patient History Limitations: Reports: No Limitations - History of Present Illness INITIAL COMMENTS - FREE TEXT/NARRATIVE: 39F no significant past medical history presents for 3 days of multiple complaints. She notes sinus congestion, rhinorrhea, diffuse myalgias, generalized weakness, headache, nonbloody watery diarrhea for the last couple of days, chest soreness, nonproductive cough, chills, subjective fever. She denies nausea, vomiting, abdominal pain, dysuria. 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 generalized/headache Pain Score (Numeric/FACES): 10 - Related Data Allergies Allergy/AdvReac Type Severity Reaction Status Date / Time No Known Allergies Allergy Verified 09/16/20 05:57 Home Meds: Home Meds . 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 STATION [place] History: ovarian cysts Musculoskeletal History: Reports: None Neurological History: Reports: Migraines Psychiatric History: Reports: None Endocrine/Metabolic History: Reports: None Hematologic History: Reports: None Immunologic History: Reports: None Oncologic (Cancer) History: Reports: None Dermatologic History: Reports: Cellulitis - Infectious Disease History Infectious Disease History: Reports: None - Past Surgical History Head Surgeries/Procedures: Reports: None HEENT Surgical History: Reports: Other (See Below) Other HEENT Surgeries/Procedures: dental surgery Cardiovascular Surgical History: Reports: None Respiratory Surgical History: Reports: None GI Surgical History: Reports: None Female Surgical History: Reports: Tubal Ligation Endocrine Surgical History: Reports: None Musculoskeletal Surgical History: Reports: None Oncologic Surgical History: Reports: None Dermatological Surgical History: Reports: None Social & Family History - Family History Family Medical History: No Pertinent Family History - Caffeine Use Caffeine Use: Reports: None Caffeine Use Comment: 1/day - Recreational Drug Use Recreational Drug Use: No ED ROS GENERAL - Review of Systems Review Of Systems: Comprehensive ROS is negative, except as noted in HPI. ED EXAM, GENERAL - Physical Exam Exam: See Below Exam Limited By: No Limitations General Appearance: Alert, WD/WN, No Apparent Distress Ears: Hearing Grossly Normal Throat/Mouth: Normal Voice, No Airway Compromise Head: Atraumatic, Normocephalic Neck: Normal Inspection, Supple Respiratory/Chest: No Respiratory Distress, Lungs Clear, Normal Breath Sounds, No Accessory Muscle Use Cardiovascular: Normal Peripheral Pulses, Regular Rate, Rhythm Extremities: Normal Inspection Neurological: Alert, Normal Cognition, Normal Gait Psychiatric: Normal Affect, Normal Mood Skin Exam: Warm, Dry, Intact, Normal Color #1 Interpretation EKG Date: 09/16/20 Time: 06:30 Rhythm: NSR Rate (Beats/Min): 90 [place]: Normal P-Wave: Present QRS: Normal ST-T: Normal QT: Normal NV/PQ Interval: 124 Comparison: NA - No Prior EKG EKG Interpretation Comments: Normal EKG Course - Vital Signs Last Recorded V/S: Last Vital Signs Temp 97.8 F 09/16/20 05:47 Pulse 101 H 09/16/20 05:47 Resp 19 09/16/20 05:47 BP 109/73 09/16/20 05:47 Pulse Ox 99 09/16/20 05:47 - Orders/Labs/Meds Orders: Active Orders 24 hr Category Date Time Status EKG 12 Lead [EKG Documentation Completion] [RC] STAT Care 09/16/20 06:22 Active Sodium Chloride 0.9% [Saline Flush] Med 09/16/20 07:40 Active 10 ml FLUSH ASDIRECTED PRN Sodium Chloride 0.9% [Saline Flush] Med 09/16/20 07:40 Active 2.5 ml FLUSH ASDIRECTED PRN Pulse Oximetry Continuous Monitoring [OM.PC] CONTINUOUS Oth 09/16/20 06:00 Ordered Saline Lock Insert [OM.PC] Stat Oth 09/16/20 07:40 Ordered Medication Orders Sodium Chloride (Sodium Chloride 0.9% 10 Ml Syringe) 10 ml FLUSH ASDIRECTED PRN PRN Reason: Keep Vein Open Sodium Chloride (Sodium Chloride 0.9% 2.5 Ml Syringe) 2.5 ml FLUSH ASDIRECTED PRN PRN Reason: Keep Vein Open Last Admin: 09/16/20 07:49 Dose: 2.5 ml Documented by: YAOAZ Labs: Laboratory Tests 09/16/20 09/16/20 09/16/20 Range/Units 06:15 06:55 06:55 WBC 3.76 L (4.0-11.0) K/uL RBC 4.64 (4.30-5.90) M/uL Hgb 12.6 (12.0-16.0) g/dL Hct 39.1 (36.0-46.0) % MCV 84.3 (80.0-98.0) fL MCH 27.2 (27.0-32.0) pg MCHC 32.2 (31.0-37.0) g/dL RDW Std Deviation 44.0 (28.0-62.0) fl RDW Coeff of [place] 14 (11.0-15.0) % Plt Count 201 (150-400) K/uL MPV 10.70 (7.40-12.00) fL Neut % (Auto) 65.9 (48.0-80.0) % Lymph % (Auto) 22.6 (16.0-40.0) % [place] % (Auto) 4.8 (0.0-15.0) % Eos % (Auto) 6.4 (0.0-7.0) % Baso % (Auto) 0.3 (0.0-1.5) % Neut # (Auto) 2.5 (1.4-5.7) K/uL Lymph # (Auto) 0.9 (0.6-2.4) K/uL [place] # (Auto) 0.2 (0.0-0.8) K/uL Eos # (Auto) 0.2 (0.0-0.7) K/uL Baso # (Auto) 0.0 (0.0-0.1) K/uL Nucleated RBC % 0.0 /100WBC Nucleated RBCs # 0 K/uL Sodium 130 L (136-145) mmol/L Potassium 4.1 (3.5-5.1) mmol/L Chloride 102 (98-107) mmol/L Carbon Dioxide 25.0 (21.0-32.0) mmol/L BUN 10 (7.0-18.0) mg/dL Creatinine 0.9 (0.6-1.0) mg/dL Est Cr Clr Drug Dosing 83.23 mL/min Estimated GFR (MDRD) > 60.0 ml/min Glucose 103 (74-106) mg/dL Calcium 8.5 (8.5-10.1) mg/dL Total Bilirubin 0.5 (0.2-1.0) mg/dL AST 49 H (15-37) IU/L ALT 180 H (14-63) IU/L Alkaline Phosphatase 224 H (46-116) U/L Creatine Kinase 73 (26-308) U/L Troponin I < 0.050 (0.000-0.056) ng/mL Total Protein 7.3 (6.4-8.2) g/dL Albumin 3.0 L (3.4-5.0) g/dL Globulin 4.3 H (2.6-4.0) g/dL Albumin/Globulin Ratio 0.7 L (0.9-1.6) Urine Color Urine Appearance Urine pH (5.0-8.0) Ur Specific [place] (1.001-1.035) Urine Protein (NEGATIVE) mg/dL Urine Glucose (UA) (NEGATIVE) mg/dL Urine Ketones (NEGATIVE) mg/dL Urine Occult Blood (NEGATIVE) Urine Nitrite (NEGATIVE) Urine Bilirubin (NEGATIVE) Urine Ictotest Urine Urobilinogen (<2.0) EU/dL Ur Leukocyte Esterase (NEGATIVE) Urine RBC (0-2/HPF) Urine WBC (0-5/HPF) Ur Epithelial Cells (NONE-FEW) Urine Bacteria (NEGATIVE) Urine HCG, Qual (NEGATIVE) Monoscreen (NEG) Influenza Type A RNA NEGATIVE (NEGATIVE) Influenza Type B RNA NEGATIVE (NEGATIVE) SARS-CoV-2 RNA ([place]) NEGATIVE (NEGATIVE) 09/16/20 09/16/20 09/16/20 Range/Units 06:55 08:58 08:58 WBC (4.0-11.0) K/uL RBC (4.30-5.90) M/uL Hgb (12.0-16.0) g/dL Hct (36.0-46.0) % MCV (80.0-98.0) fL MCH (27.0-32.0) pg MCHC (31.0-37.0) g/dL RDW Std Deviation (28.0-62.0) fl RDW Coeff of [place] (11.0-15.0) % Plt Count (150-400) K/uL MPV (7.40-12.00) fL Neut % (Auto) (48.0-80.0) % Lymph % (Auto) (16.0-40.0) % [place] % (Auto) (0.0-15.0) % Eos % (Auto) (0.0-7.0) % Baso % (Auto) (0.0-1.5) % Neut # (Auto) (1.4-5.7) K/uL Lymph # (Auto) (0.6-2.4) K/uL [place] # (Auto) (0.0-0.8) K/uL Eos # (Auto) (0.0-0.7) K/uL Baso # (Auto) (0.0-0.1) K/uL Nucleated RBC % /100WBC Nucleated RBCs # K/uL Sodium (136-145) mmol/L Potassium (3.5-5.1) mmol/L Chloride (98-107) mmol/L Carbon Dioxide (21.0-32.0) mmol/L BUN (7.0-18.0) mg/dL Creatinine (0.6-1.0) mg/dL Est Cr Clr Drug Dosing mL/min Estimated GFR (MDRD) ml/min Glucose (74-106) mg/dL Calcium (8.5-10.1) mg/dL Total Bilirubin (0.2-1.0) mg/dL AST (15-37) IU/L ALT (14-63) IU/L Alkaline Phosphatase (46-116) U/L Creatine Kinase (26-308) U/L Troponin I (0.000-0.056) ng/mL Total Protein (6.4-8.2) g/dL Albumin (3.4-5.0) g/dL Globulin (2.6-4.0) g/dL Albumin/Globulin Ratio (0.9-1.6) Urine Color DARK YELLOW Urine Appearance CLEAR Urine pH 6.0 (5.0-8.0) Ur Specific [place] 1.020 (1.001-1.035) Urine Protein TRACE H (NEGATIVE) mg/dL Urine Glucose (UA) NEGATIVE (NEGATIVE) mg/dL Urine Ketones TRACE H (NEGATIVE) mg/dL Urine Occult Blood NEGATIVE (NEGATIVE) Urine Nitrite NEGATIVE (NEGATIVE) Urine Bilirubin SMALL H (NEGATIVE) Urine Ictotest NEGATIVE Urine Urobilinogen 2.0 H (<2.0) EU/dL Ur Leukocyte Esterase TRACE H (NEGATIVE) Urine RBC 0-1 (0-2/HPF) Urine WBC 1-4 (0-5/HPF) Ur Epithelial Cells FEW (NONE-FEW) Urine Bacteria RARE (NEGATIVE) Urine HCG, Qual NEGATIVE (NEGATIVE) Monoscreen NEGATIVE (NEG) Influenza Type A RNA (NEGATIVE) Influenza Type B RNA (NEGATIVE) SARS-CoV-2 RNA ([place]) (NEGATIVE) Meds: Medications Generic Name Dose Route Start Last Admin Trade Name Freq PRN Reason Stop Dose Admin Sodium Chloride 10 ml 09/16/20 07:40 Sodium Chloride 0.9% 10 Ml Syringe FLUSH ASDIRECTED PRN Keep Vein Open Sodium Chloride 2.5 ml 09/16/20 07:40 09/16/20 07:49 Sodium Chloride 0.9% 2.5 Ml Syringe FLUSH 2.5 ml ASDIRECTED PRN Administration Keep Vein Open Discontinued Medications Generic Name Dose Route Start Last Admin Trade Name Freq PRN Reason Stop Dose Admin Acetaminophen 1,000 mg 09/16/20 07:19 09/16/20 07:46 Acetaminophen 500 Mg Tab PO 09/16/20 07:20 1,000 mg ONETIME ONE Administration Sodium Chloride 1,000 mls @ 999 mls/hr 09/16/20 07:19 09/16/20 07:47 Normal Saline IV 09/16/20 08:19 999 mls/hr .Bolus ONE Administration Ketorolac Tromethamine 15 mg 09/16/20 07:19 09/16/20 07:48 Ketorolac 15 Mg/Ml Sdv IVPUSH 09/16/20 07:20 15 mg STAT STA Administration - Re-Assessments/Exams Free Text/Narrative Re-Assessment/Exam: 09/16/20 08:53 Patient is feeling better after IV fluid bolus, Toradol, Tylenol. She does still have some body aches. She is providing urine sample at this time. Her Monospot, influenza, Covid testing were all negative. Her blood labs do show a mild leukopenia to 3.7 as well as mild transaminitis. This could be in the setting of an acute viral illness although I believe she will require further work-up as an outpatient to further elucidate the cause of her lab abnormalities. 09/16/20 09:30 Urinalysis is negative for , negative for infection, mild proteinuria, mild ketonuria, positive urine bilirubin. Again I am uncertain what exactly is causing patient symptoms. Again could be due to acute viral illness considering her symptoms but I recommend that she follow-up with her primary care physician within the next week for reassessment and to have her labs repeated to make sure that her transaminitis is not getting worse and hopefully clearing. I explained to patient that while her labs do not look indicative of acute hepatic failure or hepatitis that it could be an early manifestation of a more serious pathology and that it can be very important for her to follow-up with her primary care physician. I discussed that unfortunately in the emergency department we do not always come to a definitive diagnosis and that this diagnostic uncertainty underlies the importance of primary care physician follow-up for further work-up. Departure - Departure Time of Disposition: 09:31 Disposition: Home, Self-Care 01 Condition: Good Clinical Impression: Transaminitis, Viral illness Leukopenia Qualifiers: Leukopenia type: unspecified Qualified Code(s): D72.819 - Decreased white blood cell count, unspecified - Discharge Information Instructions: Viral Illness, Adult Referrals: Yasmany Newton MD [Primary Care Provider] - Forms: ED Department Discharge Additional Instructions: Your labs are remarkable for transaminitis which means an elevation of your liver function tests. The elevation is mild but will be very important to follow-up with your primary care physician for repeat labs to make sure that they are downtrending. You also had mild leukopenia or low white blood cell count. This should also be repeated by your primary care physician to make sure that the numbers going up. Your urine showed mild protein in the urine and mild ketones which can be a sign of dehydration. Your kidney function was normal on your blood work. All of these lab abnormalities can be caused by an acute viral infection and your symptoms are consistent with an acute viral infection. If that is the case it should go away on its own, but it is possible that there is something else going on which is why it will be so important to have your labs repeated and to have your primary care physician evaluate them and come up with a plan. If you develop worsening pain, vomiting and are unable to keep anything down, or any new or concerning symptoms you are encouraged to return to the emergency department for reassessment. This is particularly important considering the diagnostic uncertainty of today's work-up. The following information is given to patients seen in the emergency department who are being discharged to home. This information is to outline your options for follow-up care. We provide all patients seen in our emergency department with a follow-up referral. The need for follow-up, as well as the timing and circumstances, are variable depending upon the specifics of your emergency department visit. If you don't have a primary care physician on staff, we will provide you with a referral. We always advise you to contact your personal physician following an emergency department visit to inform them of the circumstance of the visit and for follow-up with them and/or the need for any referrals to a consulting specialist. The emergency department will also refer you to a specialist when appropriate. This referral assures that you have the opportunity for follow-up care with a specialist. All of these measure are taken in an effort to provide you with optimal care, which includes your follow-up. Under all circumstances we always encourage you to contact your private physician who remains a resource for coordinating your care. When calling for follow-up care, please make the office aware that this follow-up is from your recent emergency room visit. If for any reason you are refused follow-up, please contact the [facility] Emergency Department at and asked to speak to the emergency department charge nurse. Please follow up with your primary care physician. If you do not have a primary care physician, see below: [facility] [address] [place] [id number] [facility] [address] [place] [address] [facility] [address], [place] [address] Sepsis Event Note (ED) - Evaluation Sepsis Screening Result: No Definite Risk - Focused Exam Vital Signs: Vital Signs Temp Pulse Resp BP Pulse Ox 09/16/20 05:47 97.8 F 101 H 19 109/73 99 - My Orders Last 24 Hours: My Active Orders 09/16/20 07:40 Sodium Chloride 0.9% [Saline Flush] 10 ml FLUSH ASDIRECTED PRN Sodium Chloride 0.9% [Saline Flush] 2.5 ml FLUSH ASDIRECTED PRN Saline Lock Insert [OM.PC] Stat - Assessment/Plan Last 24 Hours: My Active Orders 09/16/20 07:40 Sodium Chloride 0.9% [Saline Flush] 10 ml FLUSH ASDIRECTED PRN Sodium Chloride 0.9% [Saline Flush] 2.5 ml FLUSH ASDIRECTED PRN Saline Lock Insert [OM.PC] Stat
[2020-09-16] MEDS ORDERED: Sodium Chloride 0.9% 10 ML Syringe FLUSH PRN (07:40)
[2020-09-16] MEDS ORDERED: Sodium Chloride 0.9% 2.5 ML Syringe FLUSH PRN (07:40)
[2020-09-16 09:42] VITALS: BP 107/63; PULSE 90
== END 2020-09-16 09:41 | disposition home or self-care (01) ==
LOC: MW.ED 05:37
DX: D72.819 Decreased white blood cell count, unspecified (principal); B34.9 Viral infection, unspecified; R74.01 Elevation of levels of liver transaminase levels; Z20.822 Contact with and (suspected) exposure to COVID-19
CPT/HCPCS: 0240U; 36415; 71046; 80053; 81001; 81025; 82550; 84484; 85025; 86308; 93005; 96374; 99284; A9270; J1885; J7030; 93010; 99283

== ENCOUNTER 2021-02-17 08:47 | Emergency (ER) | payer MEDICAID ==
[2021-02-17] MEDS ORDERED: Lidocaine 1% with EPINEPHrine 1:100,000 20 ML MDV INJECT ONE (09:11)
[2021-02-17] MEDS ORDERED: Ketorolac 15 MG/ML SDV IM ONE (09:11)
--- NOTE | 2021-02-17 09:41 | EDM.PDOC ---
ED HPI GENERAL MEDICAL PROBLEM - General Chief Complaint: General Stated Complaint: SKIN IRRITATION Time Seen by Provider: 02/17/21 09:01 - History of Present Illness INITIAL COMMENTS - FREE TEXT/NARRATIVE: CHIEF COMPLAINT(S): "A boil on the inside of my leg." HISTORY OF PRESENT ILLNESS: This is a 40-year-old man with a past medical history of prior leg abscess status post incision and drainage multiple years ago who presents to the emergency department with a chief complaint of "a boil on the inside of my leg." The patient states that she has been experiencing a boil on the inside of her right leg. She states that she thought it was going to get smaller but it has not and has gotten bigger. She states that she is currently experiencing 9 out of 10 sharp/achy pain which is worsened when her legs rub together or you touch it. She denies any radiation of the pain. She states that she has tried medication at home and got into the hot tub without any relief. She denies any fevers, chills, pain with defecation, pain with urination, vaginal discharge or vaginal bleeding. She states that this area is not on her labia. She states that this feels exactly like it did last time. She denies any fevers or chills. REVIEW OF SYSTEMS: Constitutional: Denies fever, chills. Eyes: Denies eye pain Ears, Nose, Mouth, & Throat: Denies earache Cardiovascular: Denies chest pain Respiratory: Denies shortness of breath Gastrointestinal: Denies Nausea, vomiting, diarrhea, hematochezia. Genitourinary: Denies hematuria Skin: Positive for boil on right leg MSK: Denies joint pain Neurological: Denies blurred vision, numbness, tingling, weakness psychiatric: Denies depression PAST MEDICAL HISTORY: As per history of present illness and as reviewed below otherwise noncontributory. SURGICAL HISTORY: As per history of present illness and as reviewed below otherwise noncontributory. SOCIAL HISTORY: As per history of present illness and as reviewed below otherwise noncontributory. FAMILY HISTORY: As per history of present illness and as reviewed below otherwise noncontributory. EXAMINATION OF ORGAN SYSTEMS/BODY AREAS: Constitutional: Blood pressure is 120/61, heart rate 94, respiratory rate 18 with an oxygen saturation 98% on room air. Temperature 36.6 General: Well-appearing woman who is in no acute distress Psychiatric: Appropriate mood and affect. Eyes: No scleral icterus or conjunctival erythema ENMT: Moist mucous membranes. No pharyngeal erythema Cardiovascular: Regular, rate, and rhythm. No gallops, murmurs, or rubs. Bilateral upper extremity pulses symmetric and intact. Respiratory: Lungs clear to auscultation bilaterally. No wheezes, rales, or rhonchi. Gastrointestinal: Soft, non-tender, non-distended. Normoactive bowel sounds Genitourinary: No suprapubic tenderness Musculoskeletal: Normal range of motion. Skin: There is an approximately 2 cm area of fluctuation and induration located on the medial aspect of the left thigh just at the gluteal fold. This is nowhere near the anus. It does not involve the labia. Neurological: Alert, GCS 15 MEDICAL DECISION MAKING AND COURSE IN THE ED WITH INTERPRETATION/REVIEW OF DIAGNOSTIC STUDIES: This is a 40-year-old woman with a past medical history of left thigh abscess who comes to the emergency department with what appears to be a right thigh abscess. At this time the patient's vital signs are completely normal. At this time I do not believe any labs or imaging are indicated. Will perform incision and drainage. Incision and drainage was performed by myself. The area was prepped with povidone and the skin was locally anesthetized with 1% lidocaine. An incision was made with an 11 blade. Purulent material was removed. A dressing was placed. After incision and drainage I did discuss with patient strict return precautions. She is to follow-up with her primary care physician within 3 to 5 days for reevaluation. She was amenable discharge and had no further questions DISPOSITION: The patient was discharged home in stable condition. The patient will follow up with primary care physician in 3 to 5 days CONDITION: Fair PROCEDURES: Incision and drainage FINAL IMPRESSION(S)/DIAGNOSES: 1. Acute right thigh abscess status post incision and drainage. Josh Carlson M.D. left inner thigh Pain Score (Numeric/FACES): 9 - Related Data Allergies Allergy/AdvReac Type Severity Reaction Status Date / Time No Known Allergies Allergy Verified 02/17/21 09:44 Home Meds: Home Meds Sulfamethoxazole/Trimethoprim [Bactrim Ds Tablet] 1 each PO BID #13 tablet 02/17/21 [Rx] Past Medical History - Past Health History Medical/Surgical History: Denies Medical/Surgical History HEENT History: Reports: Other (See Below) Other HEENT History: dental abscess Cardiovascular History: Reports: None Respiratory History: Reports: None Gastrointestinal History: Reports: None Genitourinary History: Reports: None ART PSYCHOTHERAPIST History: Reports: Other ART PSYCHOTHERAPIST History: ovarian cysts Musculoskeletal History: Reports: None Neurological History: Reports: Migraines Psychiatric History: Reports: None Endocrine/Metabolic History: Reports: None Hematologic History: Reports: None Immunologic History: Reports: None Oncologic (Cancer) History: Reports: None Dermatologic History: Reports: Cellulitis - Infectious Disease History Infectious Disease History: Reports: None - Past Surgical History Head Surgeries/Procedures: Reports: None HEENT Surgical History: Reports: Other (See Below) Other HEENT Surgeries/Procedures: dental surgery Cardiovascular Surgical History: Reports: None Respiratory Surgical History: Reports: None GI Surgical History: Reports: None Female Surgical History: Reports: Tubal Ligation Endocrine Surgical History: Reports: None Musculoskeletal Surgical History: Reports: None Oncologic Surgical History: Reports: None Dermatological Surgical History: Reports: None Social & Family History - Family History Family Medical History: No Pertinent Family History - Tobacco Use Tobacco Use Status *Q: Former Tobacco User Used Tobacco, but Quit: Yes Month/Year Tobacco Last Used: 10 - Caffeine Use Caffeine Use: Reports: None Caffeine Use Comment: 1/day - Recreational Drug Use Recreational Drug Use: No ED ROS GENERAL - Review of Systems Review Of Systems: See Below ED EXAM, GENERAL - Physical Exam Exam: See Below Course - Vital Signs Last Recorded V/S: Last Vital Signs Temp 36.4 C 02/17/21 10:02 Pulse 81 02/17/21 10:02 Resp 16 02/17/21 10:02 BP 134/71 02/17/21 10:02 Pulse Ox 100 02/17/21 10:02 - Orders/Labs/Meds Meds: Medications Discontinued Medications Generic Name Dose Route Start Last Admin Trade Name Zeke PRN Reason Stop Dose Admin Ketorolac Tromethamine 15 mg 02/17/21 09:11 02/17/21 09:20 Ketorolac 15 Mg/Ml Sdv IM 02/17/21 09:12 15 mg ONETIME ONE Administration Lidocaine/Epinephrine 20 ml 02/17/21 09:11 02/17/21 09:20 Lidocaine 1% With Epinephrine 1:100,000 20 Ml Mdv INJECT 02/17/21 09:12 20 ml ONETIME ONE Administration Trimethoprim/Sulfamethoxazole 1 tab 02/17/21 09:42 02/17/21 09:59 Sulfamethoxazole/Trimethoprim 800-160 Mg Tab PO 02/17/21 09:43 1 tab ONETIME ONE Administration Departure - Departure Time of Disposition: 09:44 Disposition: Home, Self-Care 01 Condition: Fair Clinical Impression: Abscess and cellulitis of gluteal region - Discharge Information *PRESCRIPTION DRUG MONITORING PROGRAM REVIEWED*: No *COPY OF PRESCRIPTION DRUG MONITORING REPORT IN PATIENT CHRIST: No Prescriptions: Sulfamethoxazole/Trimethoprim [Bactrim Ds Tablet] 1 each PO BID #13 tablet Instructions: Skin Abscess, [id number], Cellulitis, Adult, [id number] Referrals: Yasmany Newton MD [Primary Care Provider] - Forms: ED Department Discharge Additional Instructions: You were evaluated today on an emergent basis. At this time we did open up the abscess on your right thigh area. At this time I do recommend that she keep the area clean with soap and water. It should continue to drain and then slowly improve. Given the concern for possible overlying skin infection we will also start you on antibiotics. It is important that you complete the 7-day course of Bactrim. Please use Tylenol and Motrin for pain relief. Please return for any new or worsening symptoms such as worsening redness, pain, swelling, pain with bowel movement. Otherwise follow-up with your primary care physician in 3 to 5 days for reevaluation. Please use: Tylenol 500-1000mg every 6 hours (DO NOT TAKE MORE THAN 4000mg in 1 day) Ibuprofen 400mg every 6 hours (Take with food as it can cause ulcers, GI upset) Example schedule: 8:00 AM (Tylenol 500-1000mg) 11:00 AM (Ibuprofen 400mg) 2:00 PM (Tylenol 500-1000mg) 5:00 PM (Ibuprofen 400mg) [facility] [address] [place] [address] [id number] [address] [address] The patient is informed of any results of their evaluation and diagnostic workup and all questions are answered. They are given discharge instructions and return precautions. The patient is stable for discharge. The patient states they understand and agree with the plan and that they will return if their symptoms get worse or if they have any new concerns. The following information is given to patients seen in the emergency department who are being discharged to home. This information is to outline your options for follow-up care. We provide all patients seen in our emergency department with a follow-up referral. The need for follow-up, as well as the timing and circumstances, are variable depending upon the specifics of your emergency department visit. If you don't have a primary care physician on staff, we will provide you with a referral. We always advise you to contact your personal physician following an emergency department visit to inform them of the circumstance of the visit and for follow-up with them and/or the need for any referrals to a consulting specialist. The emergency department will also refer you to a specialist when appropriate. This referral assures that you have the opportunity for follow-up care with a specialist. All of these measure are taken in an effort to provide you with optimal care, which includes your follow-up. Under all circumstances we always encourage you to contact your private physician who remains a resource for coordinating your care. When calling for follow-up care, please make the office aware that this follow-up is from your recent emergency room visit. If for any reason you are refused follow-up, please contact the [facility] Emergency Department at and asked to speak to the emergency department charge nurse. Sepsis Event Note (ED) - Evaluation Sepsis Screening Result: No Definite Risk
[2021-02-17] MEDS ORDERED: Sulfamethoxazole/Trimethoprim 800-160 MG Tab PO ONE (09:42)
[2021-02-17 10:03] VITALS: BP 134/71; PULSE 81
== END 2021-02-17 10:04 | disposition home or self-care (01) ==
LOC: MW.ED 08:47
DX: L02.415 Cutaneous abscess of right lower limb (principal); L02.31 Cutaneous abscess of buttock; L03.317 Cellulitis of buttock; Z87.891 Personal history of nicotine dependence
CPT/HCPCS: 10060; 96372; 99282; A9270; J1885

== ENCOUNTER 2022-05-01 08:41 | Emergency (ER) | payer SELFPAY ==
[2022-05-01] MEDS ORDERED: Cyclobenzaprine 10 MG Tab PO ONE (09:13)
[2022-05-01 10:01] LABS: CARBON DIOXIDE,CO2 28.9 mmol/L (21.0-32.0); POTASSIUM,K 3.8 mmol/L (3.5-5.1)
[2022-05-01 12:05] VITALS: BP 174/81; PULSE 82
== END 2022-05-01 11:57 | disposition home or self-care (01) ==
LOC: MW.ED 08:41
DX: M79.605 Pain in left leg (principal); M54.50 Low back pain, unspecified; X50.0XXA Overexertion from strenuous movement or load, initial encounter; Y93.B1 Activity, exercise machines primarily for muscle strengthening
CPT/HCPCS: 36415; 74176; 80053; 81003; 81025; 83690; 85025; 99284; A9270

== ENCOUNTER 2022-06-26 08:57 | Emergency (ER) | payer BC, MEDICAID ==
[2022-06-26 09:26] VITALS: BP 133/78; PULSE 95
== END 2022-06-26 12:10 | disposition home or self-care (01) ==
LOC: MW.ED 08:57
DX: N39.0 Urinary tract infection, site not specified (principal); R91.1 Solitary pulmonary nodule
CPT/HCPCS: 74176; 74176-26; 81003; 81025; 99284

== ENCOUNTER 2022-10-10 14:38 | Emergency (ER) | payer MEDICAID ==
[2022-10-10] MEDS ORDERED: Ketorolac 60 MG/2 ML SDV IM STA (15:08)
[2022-10-10] MEDS ORDERED: Promethazine 25 MG/ML SDV IM STA (15:08)
[2022-10-10 16:02] VITALS: BP 159/79; PULSE 111
== END 2022-10-10 15:57 | disposition home or self-care (01) ==
LOC: MW.ED 14:38
DX: G43.909 Migraine, unspecified, not intractable, without status migrainosus (principal)
CPT/HCPCS: 96372; 99283; J1885; J2550; 99282

== ENCOUNTER 2022-12-21 17:06 | Emergency (ER) | payer MEDICAID ==
[2022-12-21 17:29] VITALS: BP 118/82; PULSE 97
[2022-12-21] MEDS ORDERED: Ibuprofen 800 MG Tab PO STA (17:47)
[2022-12-21] MEDS ORDERED: Acetaminophen 500 MG Tab PO STA (17:47)
== END 2022-12-21 19:20 | disposition home or self-care (01) ==
LOC: MW.ED 17:06
DX: S93.401A Sprain of unspecified ligament of right ankle, initial encounter (principal); W17.89XA Other fall from one level to another, initial encounter; Y92.828 Other wilderness area as the place of occurrence of the external cause
CPT/HCPCS: 73610; 73630; A9270

== ENCOUNTER 2023-03-20 15:31 | Emergency (ER) | payer OTHER, MEDICAID ==
[2023-03-20] MEDS ORDERED: Ketorolac 60 MG/2 ML SDV IM ONE (17:15)
[2023-03-20] MEDS ORDERED: Cyclobenzaprine 10 MG Tab PO ONE (17:15)
[2023-03-20] MEDS ORDERED: diphenhydrAMINE 50 MG Cap PO ONE (18:40)
[2023-03-20 19:36] VITALS: BP 136/73; PULSE 62
== END 2023-03-20 19:37 | disposition home or self-care (01) ==
LOC: MW.ED 15:31
DX: T14.8XXA Other injury of unspecified body region, initial encounter (principal); V87.7XXA Person injured in collision between other specified motor vehicles (traffic), initial encounter
CPT/HCPCS: 70450; 72131; 96372; 99284; A9270; J1885; 99283

== ENCOUNTER 2023-10-23 20:09 | Emergency (ER) | payer MEDICAID ==
[2023-10-23] MEDS: traMADol 50 MG Tab PO STA (20:35)
[2023-10-23 21:48] VITALS: BP 128/96; PULSE 81
== END 2023-10-23 21:38 | disposition home or self-care (01) ==
LOC: MW.ED 20:09
DX: M25.561 Pain in right knee (principal); Z75.8 Other problems related to medical facilities and other health care; Z88.8 Allergy status to other drugs, medicaments and biological substances; X50.0XXA Overexertion from strenuous movement or load, initial encounter
CPT/HCPCS: 73562; 99283; A9270

== ENCOUNTER 2023-12-24 09:18 | Day surgery (SDC) | payer MEDICAID ==
[~2023-12-24 09:18] MED LIST: Albuterol 0.083% 2.5 MG/3 ML Neb Soln NEB PRN; Lidocaine 2% 5 ML SDV ONE; Metoclopramide 10 MG/2 ML SDV IVPUSH PRN; Morphine 2 MG/ML SYRINGE IVPUSH PRN; Naloxone 0.4 MG/ML SDV IVPUSH PRN; Ondansetron 4 MG/2 ML SDV IVPUSH PRN; Ropivacaine 0.5% 5 MG/ML 30 ML SDV ONE; ceFAZolin 2 GM in Sodium Chloride 0.9% 50 ML IV ONE; droPERidol 5 MG/2 ML SDV IVPUSH PRN; fentaNYL 50 MCG/ML SDV IVPUSH PRN
[2023-12-24] MEDS: Lactated Ringers 1,000 ML IV SCH (09:45)
[2023-12-24] MEDS ORDERED: Scopalamine 1mg/3day Transdermal Patch TOP ONE (10:30)
[2023-12-24] MEDS ORDERED: Propofol 200 MG/20 ML SDV ONE (11:00)
[2023-12-24] MEDS ORDERED: dexmedeTOMIDine HCl 200 MCG/2 ML SDV ONE (11:00)
[2023-12-24] MEDS ORDERED: fentaNYL 100 MCG/2 ML SDV ONE (11:00)
[2023-12-24] MEDS ORDERED: propofoL 50 ML ONE ×2 (11:04→12:24)
[2023-12-24] MEDS ORDERED: ceFAZolin 2 GM Vial ONE (12:01)
[2023-12-24] MEDS ORDERED: Ondansetron 4 MG/2 ML SDV ONE (12:06)
[2023-12-24] MEDS ORDERED: Dexamethasone 4 MG/ML 5 ML MDV ONE (12:06)
[2023-12-24] MEDS ORDERED: Ketamine HCL/NACL, ISO-OSM 50 MG/5 ML Syringe ONE (12:09)
[2023-12-24] MEDS: HYDROmorphone 1 MG/ML Syringe IVPUSH PRN (13:32)
[2023-12-24] MEDS ORDERED: Acetaminophen 1,000 MG in Premix Bag 1 BAG IV ONE (14:20)
[2023-12-24 15:23] VITALS: BP 129/84; PULSE 76
== END 2023-12-24 15:05 | disposition home or self-care (01) ==
LOC: MW.SDS 09:18
PROVIDERS: ATTEND Orthopaedic Surgery
DX: S83.511A Sprain of anterior cruciate ligament of right knee, initial encounter (principal); H54.7 Unspecified visual loss; G43.909 Migraine, unspecified, not intractable, without status migrainosus; Z88.8 Allergy status to other drugs, medicaments and biological substances; Z87.891 Personal history of nicotine dependence; X58.XXXA Exposure to other specified factors, initial encounter
CPT/HCPCS: 29888; 64447; 81025; J0131; J0690; J1100; J1170; J2405; J2704; J2795; J3010; J7120; 01400; C1713; J3490

== ENCOUNTER 2024-06-29 14:05 | Emergency (ER) | payer BC, MEDICAID ==
[2024-06-29 14:21] VITALS: BP 135/79
[2024-06-29] MEDS: Acetaminophen 500 MG Tab PO ONE (15:56)
[2024-06-29] MEDS: Lidocaine 2% Viscous Solution 15 ML UD PO ONE (16:12)
[2024-06-29] MEDS: Ibuprofen 800 MG Tab PO ONE (16:13)
[2024-06-29 16:16] VITALS: PULSE 81
== END 2024-06-29 16:17 | disposition home or self-care (01) ==
LOC: MW.ED 14:05
DX: R59.9 Enlarged lymph nodes, unspecified (principal); Z75.8 Other problems related to medical facilities and other health care; Z88.8 Allergy status to other drugs, medicaments and biological substances
CPT/HCPCS: 87428; 87651; 99284; A9270; 99283

== ENCOUNTER 2024-08-14 16:42 | Emergency (ER) | payer SELFPAY ==
[2024-08-14] MEDS: Ketorolac 30 MG/ML SDV IM ONE (17:07)
[2024-08-14 18:35] VITALS: BP 162/93; PULSE 91
== END 2024-08-14 18:34 | disposition home or self-care (01) ==
LOC: MW.ED 16:42
DX: J02.9 Acute pharyngitis, unspecified (principal); Z20.828 Contact with and (suspected) exposure to other viral communicable diseases; Z88.8 Allergy status to other drugs, medicaments and biological substances; Z79.899 Other long term (current) drug therapy; Z75.8 Other problems related to medical facilities and other health care
CPT/HCPCS: 87651; 96372; 99284; J1885

== ENCOUNTER 2024-09-13 20:07 | Emergency (ER) | payer SELFPAY ==
[2024-09-13] MEDS: Cyclobenzaprine 10 MG Tab PO ONE (21:19)
[2024-09-13] MEDS: Ketorolac 30 MG/ML SDV IM ONE (21:28)
[2024-09-13 21:30] VITALS: BP 147/93; PULSE 84
== END 2024-09-13 21:31 | disposition home or self-care (01) ==
LOC: MW.ED 20:07
DX: M54.50 Low back pain, unspecified (principal); Z88.8 Allergy status to other drugs, medicaments and biological substances; Z79.899 Other long term (current) drug therapy
CPT/HCPCS: 96372; 99283; J1885; 99284

== ENCOUNTER 2025-01-15 10:32 | Emergency (ER) | payer SELFPAY ==
[2025-01-15 10:41] VITALS: BP 153/86; PULSE 95
[2025-01-15 11:22] LABS: APPEARANCE,URINE CLEAR; GLUCOSE,URINE NEGATIVE (NEGATIVE); OCCULT BLOOD,URINE NEGATIVE (NEGATIVE)
[2025-01-15 11:28] LABS: EPITHELIAL CELLS,URINE FEW (NONE-FEW)
[2025-01-15 12:04] LABS: CANDIDA DNA PROBE NEGATIVE (NEGATIVE); GARDNERELLA DNA PROBE POSITIVE (NEGATIVE); TRICHOMONAS DNA PROBE NEGATIVE (NEGATIVE)
[2025-01-15 12:48] LABS: C. TRACHOMATIS BY PCR NOT DETECTED; N. GONORRHOEAE BY PCR NOT DETECTED
== END 2025-01-15 11:28 | disposition home or self-care (01) ==
LOC: MW.ED 10:32
DX: N76.0 Acute vaginitis (principal); Z88.8 Allergy status to other drugs, medicaments and biological substances; Z79.899 Other long term (current) drug therapy
CPT/HCPCS: 81001; 81025; 87480; 87491; 87510; 87591; 87660; 99283

== ENCOUNTER 2025-03-15 11:01 | Emergency (ER) | payer MEDICAID ==
[2025-03-15 11:29] VITALS: BP 148/83
[2025-03-15 19:27] VITALS: PULSE 82
== END 2025-03-15 11:30 | disposition home or self-care (01) ==
LOC: MW.ED 11:01
DX: G89.29 Other chronic pain (principal); M54.50 Low back pain, unspecified; Z88.1 Allergy status to other antibiotic agents
CPT/HCPCS: 99283; 99284